=== PATIENT | female | born 1940 ===

== ENCOUNTER 2017-01-04 23:09 | Inpatient (IN) | payer OTHER ==
[~2017-01-04] VITALS: Ht 157.4 cm; Wt 49.9 kg
--- NOTE | ~2017-01-04 | PR ---
[place], [place] PROGRESS NOTE NAME: RISHI MASCORRO UNIT #: [id number] ROOM: 311 DOCTOR: TIERA DODGE MD BIRTHDATE: [birth year] DOS: 01/22/2017 CHIEF COMPLAINT: "I need something for my sleep." SUMMARY OF THE VISIT: The patient was interviewed in the dining area where she was sitting eating her breakfast. She actually engaged in more meaningful conversation and seemed to be much less somatically preoccupied. She requested that I obtain another muffin for her and actually engaged in conversation, stating that she is still having some issues with sleep and requested a sleeping pill, specifically Ambien. When I redirected her and attempted to educate her that Ambien may not be the best alternative, she actually was open to considering alternative medications and requested that she have something to use on a p.r.n. basis. She seemed to be slightly brighter and actually joke with me, so I do think that we are making some progress finally. She did not voice any medication side effects. There was no complaining that her head was burning. There were no other somatic complaints noted. MENTAL STATUS: She is alert and oriented with some gaps. Mood does finally seem to be trending towards euthymia and affect seems much more appropriate. There was no hypomania or claudia. There were no overt auditory or visual hallucinations. She denied any medication side effects this morning. Memory has some mild gaps, otherwise she is intact. PLAN: I will maintain her current dose of Trilafon and Elavil. I see no side effects at the current medication doses. I will add Rozerem 8 mg at bedtime p.r.n. insomnia. We will continue to engage in individual and davis milieu activity with the plan to return home or to the least restrictive environment when psychiatrically stable. TIERA DODGE MD CM:PNTRANS TIERA DODGE MD 01/22/1741 interface
--- NOTE | ~2017-01-04 | PR ---
[place], [place] PROGRESS NOTE NAME: RISHI MASCORRO UNIT #: [id number] ROOM: 314 DOCTOR: Anika TORRES,KUMAR BIRTHDATE: [birth year] DOS: 01/10/2017 SUBJECTIVE: The patient seen and spoke with the staff. Per staff, the patient is doing well, still very somatic. No visual problems or issues, but resistive to take some of the medication. The patient when I went to her room, she was on her bed. She said that she only slept a few hours last night. She was insisting on going back to Pamelor and do not want to take Ambien also. After much discussion, she said that she does not want to take Effexor anymore rather she goes back to Pamelor 25 mg in the morning. I told her that I will start her on a low dose in the morning and gradually the dose can be titrated. The risks, benefits and side effect of Pamelor was discussed with the patient and she verbalized understanding. MENTAL STATUS EXAMINATION: The patient was pleasant, cooperative. Described her mood as "down." Affect was flat, broad range. Thought process goal directed. No flight of ideas or loosening of association. She denied auditory or visual hallucination. No delusion or paranoia noted. She denied any suicidal ideation, intent or plan. She also denied any homicidal ideation, intent or plan. ASSESSMENT: 1. 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 2. Generalized anxiety disorder. PLAN: 1. I will discontinue her Effexor. 2. I will start her on Pamelor 10 mg in the morning. Risks, benefits, and side effect was discussed with the patient. 3. Final medication management, discharge plan by the regular team. KUMAR TORRES MD CM:JODIE [id number] Anika TORRES 01/10/17 1155 interface
--- NOTE | ~2017-01-04 | PR ---
[place], [place] PROGRESS NOTE NAME: RISHI MASCORRO UNIT #: [id number] ROOM: 314 DOCTOR: TIERA DODGE MD BIRTHDATE: [birth year] DOS: 01/17/2017 CHIEF COMPLAINT: "Oh my head still on fire. I thought I would get better here. I have only gotten worse." SUMMARY OF THE VISIT: The patient was interviewed as she sat eating in the quiet room. She stopped to engage in conversation and once again was somatically preoccupied, stating that her head was on fire and it was all because of the medication she received. Of note, she did state that she got relief from the p.r.n. that she received last night. In reality, there is no p.r.n. medicine listed on the chart and nurses' notes indicate that she slept a solid 8 hours last night. Nurses' notes also indicate that they are noticing episodic confusion with her, which could be one of the underlying issues that needs to be addressed. I did reinforce the need to stay the course and continue with the Trilafon and the Elavil and not make any changes. Her history in the hospital to date has been one of multiple med changes and I do want her to get these medications a reasonable chance to work. MENTAL STATUS: She is alert and oriented to person, place and approximate to time. I do question whether there is an underlying cognitive decline, which is triggering some of her somatic preoccupation and almost accusatory behavior. She remains labile and very depressed. There are no overt auditory or visual hallucinations, delusions or paranoia. Short-term memory has mild gaps. PLAN: I will go ahead and start her on Exelon patch 4.6 mg a day. I will discuss this with nursing to attempt to engage her in the reason behind starting this medication and see if she will give it a reasonable chance. We will engage in individual and davis milieu activity with the plan to return home or the least restrictive environment when stable. TIERA DODGE MD CM:PNTRANS TIERA DODGE MD 01/17/17 0953 interface
--- NOTE | ~2017-01-04 | PR ---
[place], [place] PROGRESS NOTE NAME: RISHI MASCORRO UNIT #: [id number] ROOM: 314 DOCTOR: TIERA DODGE MD BIRTHDATE: [birth year] DOS: 01/15/2017 CHIEF COMPLAINT: "That medicine helped me to concentrate, but I am still feeling really depressed." SUMMARY OF THE VISIT: The patient was interviewed as she was about to sit down to eat breakfast. She initially presented with her normal, negative behavior, stating that she was not any better. However, after saying that she quickly regrouped to state that the medicine that she had during the day yesterday, did improve her concentration and helped her feel more calm. This is the first positive statements she has had in some time. She did not focus on any side effects this morning, not reporting any issues with either of the new medications. MENTAL STATUS: She is alert and oriented. Mood still seems to be depressed with a lot of negative overtones and some anxiety noted. There is no claudia or hypomania, likewise there are no overt auditory or visual hallucinations. No delusions, no paranoia. She remains somatically preoccupied. Memory for the most part is intact. PLAN: I will maintain her Elavil at 25 mg at bedtime. At this point, I will monitor to see if she is tolerating this well for several days before attempting to challenge her with a higher dose. Given the fact that she had noted positive improvement with the low dose Trilafon, I will increase the dose from 2 mg twice a day to 2 mg 3 times a day to see if we can obtain further improvement. We will engage her in individual and davis milieu activity with the ultimate plan to return home or the least restrictive environment when psychiatrically stable. TIERA DODGE MD CM:PNTRANS [id number] TIERA DODGE MD 01/15/17 1043 interface
--- NOTE | ~2017-01-04 | PR ---
[place], [place] PROGRESS NOTE NAME: RISHI MASCORRO UNIT #: [id number] ROOM: 311 DOCTOR: TIERA DODGE MD BIRTHDATE: [birth year] DOS: 01/20/2017 CHIEF COMPLAINT: "I have been poisoned. I am certain that they gave me the man next door's medicine." SUMMARY OF THE VISIT: The patient was interviewed as she rested in bed. She did awake and sat at the edge of her bed. She was very fretful and anxious and reported to me that she is convinced that she was given the wrong medicine and that it poisoned her. She continued in this very somatic vein that she has been doing ever since admission. I tried to redirect and support her. She continued to repetitively say the same thing. There is an air of accusatory behavior and I do seriously consider that she is potentially pre Alzheimer's at this point. MENTAL STATUS: She is alert and oriented with time gaps. Mood does seem to be very fretful and anxious. There is a level of paranoia that is present. She does not always process conversation and it is unclear if this is because she is not listening or she is not able to process. Memory does have some gaps. PLAN: I will increase her Trilafon to 2 mg in the morning and 4 mg at night, attempting to breakthrough some of the accusatory behavior. Maintain the Elavil at 50 mg at bedtime, attempt to get her to be compliant with the Exelon patch. I did reiterate the importance of this and she nodded in approval. We will engage in individual and davis milieu activity. We will go ahead at this point in time and proceed with attempting to get a passer, as she may require some long-term care in order to stabilize. TIERA DODGE MD CM:PNTRANS [id number] TIERA DODGE MD 01/20/17 2327 interface
--- NOTE | ~2017-01-04 | DS ---
[place], [place] DISCHARGE SUMMARY NAME: RISHI MASCORRO UNIT #: [id number] ROOM: 311 DOCTOR: TIERA DODGE MD BIRTHDATE: [birth year] DOS: 01/24/2017 CHIEF COMPLAINT: "I have just been so depressed." HISTORY OF PRESENT ILLNESS: This is a 76-year-old female with a long history of depression who had presented to [facility] emergency room with her [id number] because of increased depression with suicidal ideation and a plan to overdose on her pills. The patient has reported that she has been increasingly depressed for now several months and can no longer cope at home. She endorses poor sleep and appetite, energy, anhedonia, hopeless, helpless feelings, crying spells, and inability to cope. She was sent here then on an involuntary basis to be restabilized on medication. PAST MEDICAL HISTORY: Significant for hypertension, hyperlipidemia, glaucoma, macular degeneration and a history of bladder prolapse. SUMMARY OF HOSPITAL COURSE: The patient had a rather lengthy hospital course. Dr. Fozia Mays who was covering for me discontinued her Pamelor and Risperdal and attempted to start her on Effexor XR and trazodone. The patient was extremely somatically preoccupied, in the early part of her stay was characterized by the initiation and discontinuation of multiple medications. Effexor was ultimately discontinued in lieu of Remeron. This was discontinued later in lieu of Pamelor, which was discontinued in lieu of eventually Elavil. The patient continued to state that she had multiple and significant reactions to her medications. It became obvious that part of this was her attempt to stay in the hospital longer and she was supported and redirected on ways in which she can more effectively cope at home. She was tolerating the Elavil well and despite her complaints that she was having side effects the nurses did not notice anything in the adverse event category. She was sleeping per the nurse's report. 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 The patient did seem much more brighter and conversant toward the latter part of her stay and no longer voiced suicidal thoughts or plan. Because of her improvement, it was felt that she can be maintained at home and have followup as an outpatient. MENTAL STATUS AT DISCHARGE: The patient was alert and oriented with mild time gaps. Mood was strongly trending towards euthymia. Affect was much more appropriate. There were no symptoms of hypomania or claudia. There were no overt auditory or visual hallucinations. No delusions, no paranoia were present. Short term memory had mild gaps, otherwise she was intact. FINAL DIAGNOSIS: Major depression, recurrent with psychosis. PLAN: All of her prescriptions were e-prescribed to [facility] in [place]. She will have followup in the [facility] post-discharge. [place], [place] DISCHARGE SUMMARY NAME: RISHI MASCORRO UNIT #: [id number] ROOM: [facility] DOCTOR: TIERA DODGE MD BIRTHDATE: [birth year] TIERA DODGE MD CM:DISCHARG [id number] TIERA DODGE MD 01/24/17 1854 interface
--- NOTE | ~2017-01-04 | PR ---
[place], [place] PROGRESS NOTE NAME: RISHI MASCORRO UNIT #: [id number] ROOM: 311 DOCTOR: TIERA DODGE MD BIRTHDATE: [birth year] DOS: 01/23/2017 Interval Note CHIEF COMPLAINT: "I can't see at all." SUMMARY OF THE VISIT: The patient was interviewed as she rested in bed. She engaged readily in conversation. She again was very somatically preoccupied and stated that she was blind and could not see, although this is not true to form. The patient is able to see. 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 She remains very somatic and very negative. She is demanding that her medications be adjusted downward. Despite support and redirection, she continues to be very help rejecting. MENTAL STATUS: She is alert and oriented. Mood does seem to be still somewhat down and depressed, somatic and preoccupied. She is nihilistic in many ways. She is not suicidal or homicidal, however. PLAN: At this point in time, I will decrease her Elavil from 50 to 25 mg at bedtime, so that at least she continues to be compliant with the medicine. I do not feel at this point that continued length of stay is necessary and would like to be able to discharge her back home and perhaps get her involved in an intensive outpatient program to more normalize her activity. We will engage in individual and davis milieu activity here, discharging when stable. TIERA DODGE MD CM:PNTRANS [phone] TIERA DODGE MD 01/24/17 0431 interface
--- NOTE | ~2017-01-04 | WRIGHTHP ---
[place], [place] PATIENT HISTORY AND PHYSICAL EXAM NAME: [id number] UNIT #: [id number] ROOM: 314 DOCTOR: Anika TORRESKUMAR BIRTHDATE: [birth year] DOS: 01/06/2017 REASON FOR HOSPITALIZATION: Increased depression and suicidal ideation with plan to overdose on pills. HISTORY OF PRESENT ILLNESS: The patient was seen and chart reviewed. A 76-year-old female with history of depression in the past, who was taken to the [facility] by her [id number] because of increased depression and suicidal ideation with a plan to overdose on pills. After medical clearance, she was sent to the psychiatric unit for further care and stabilization. The patient is a 76-year-old female with pleasant and cooperative. She stated that the reason she has been feeling increasingly depressed because "I couldn't cope." She felt that she is going over the ages, could not take it anymore and then started having suicidal thought. The patient mentioned that she has been getting injection for macular degeneration. For the last couple of months, she got 2 injections and she has been feeling increasingly depressed since then. She said that one of the stress that after she started on this injection, she was not able to sleep. She reported being depressed down, sad, hopeless, helpless with lack of energy and motivation. She believes that the injection is the reason that she has been feeling the way she was feeling. She denied any psychosis, claudia or hypomania. She denied any other stressors in her life. She said that she has been taking Pamelor for the last 40 years and that medication has been helping her, but not lately. PAST MEDICAL HISTORY: Significant for hypertension, hyperlipidemia, glaucoma, macular degeneration and bladder prolapse. She has a history of cataract surgery, knee replacement and hysterectomy. PAST PSYCHIATRIC HISTORY: One prior psychiatric hospitalization. Denied prior suicidal attempt. No suicide in the family. She denied having any gun at home. SUBSTANCE ABUSE HISTORY: She denied any drugs or alcohol. SOCIAL HISTORY: She was born and raised in [place]. High school graduate. for the past 61 years. She has 4 kids, on social security now. She lives with her . Denied any history of physical or sexual abuse. MENTAL STATUS EXAMINATION: The patient was pleasant and cooperative. She was alert and oriented to day, date, month and the year. Speech was normal volume and tone. She described her mood as "down." Affect broad range, tearful at times. Thought process goal directed. No flight of ideas, loosening of association. She denied auditory or visual hallucination. No delusion or paranoia noted. She had fleeting suicidal ideation, but no intent or plan. Denied homicidal ideation, intent or plan. Insight and judgment fair. ASSESSMENT: Major depressive disorder, recurrent without psychotic features, [place], [place] PATIENT HISTORY AND PHYSICAL EXAM NAME: RISHI MASCORRO UNIT #: [id number] ROOM: 314 DOCTOR: Anika TORRES,KUMAR BIRTHDATE: [birth year] still depressed with suicidal plan. PLAN: 1. I will discontinue her Pamelor. 2. I will discontinue her Risperdal. 3. I will start her on Effexor XR 37.5 mg in the morning with a plan to titrate that up. 4. I will continue trazodone 50 mg at night. 5. Consult hospitalist for medical issues. 6. Continue redirection and supportive care. 7. Collateral information. 8. Hoyt milieu. KUMAR TORRES MD CM:HISPHYS:PATIENT HISTORY AND PHYSICAL EXAMINATION [phone] Anika TORRES 01/06/172125 interface
--- NOTE | ~2017-01-04 | PR ---
[place], [place] PROGRESS NOTE NAME: RISHI MASCORRO UNIT #: [id number] ROOM: 314 DOCTOR: IGOR LADD BIRTHDATE: [birth year] DOS: 01/18/2017 CHIEF COMPLAINT: "I am not sleeping. I am hungry." SUMMARY OF VISIT: The patient was assessed in her room, where she had all kinds of somatic complaints. I did review Dr. Talley's notes before going in there. It does state that she has multiple somatic complaints, complains of side effects to everything all the time. She has tried multiple copious amounts of medications and always complains about them. Nursing notes no main issues. My main concern is that she told me that Dr. Talley told her to tell me that I was to give her 20 mg of Ativan. I advised her that this was not going to happen. MENTAL STATUS: She is alert and oriented to person, place, and I think approximate time. No overt signs of auditory or visual hallucinations, delusions or paranoia, claudia, or hypomania. I think she might be a little depressed, but she is definitely fixated and very somatic. PLAN: Dr. Talley increased started her on Exelon yesterday to see if this gives any kind of benefit to her or help to her. He was noticing a cognitive decline, so if this is the case, the Exelon should help not only with cognition, but may be also decrease any behaviors, increase and maintain some of her ADLs. I am not going to change any of her other medications at this time. I do believe her complaints are more somatic in nature, and I am definitely not giving her 20 mg of Ativan, so we will continue to try to engage in individual and davis milieu therapy, redirect as much as possible, and go from there. SANDY LADD CNP CM:PNTRANS 42 IGOR LADD 01/18/171940 interface
--- NOTE | ~2017-01-04 | CON ---
[place], [place] REPORT OF CONSULTATION NAME: RISHI MASCORRO UNIT #: [id number] ROOM: 311 DOCTOR: DEBI HERRERA BIRTHDATE: [birth year] DOS: 01/20/2017 HISTORY OF PRESENT ILLNESS: The patient was seen on the Behavioral Health Unit after being admitted there from the hospital with suicidal ideations. The patient currently denies any suicidal ideations and stated she has been feeling better since being admitted to the Behavioral Health Unit. She states she has not had any suicidal ideation since being on the unit. The patient states she is having depressive symptoms. She did focus a lot on somatic symptoms, stating everyday something else feels worse and then that feels better the next day. She states one day she will have a headache, then the next day that will feel better and she will have stomachache and so on and so forth. She states she has had some manic symptoms her whole life and she does believe it is associated with her anxiety. MENTAL STATUS: She is alert and oriented to person, place and time. She was aware of where she was, who the president was, her birthdate and she was able to give an extended history on her family, which did align with the family members who were present. She states she has a daughter in [place], who is a nurse, who is helping to try to find the right medications for her. She states her son, Je, and his come in to visit her daily. She also has a son in [place], who is helpful and her older son is estranged. She resides with her who is helpful and able to assist her as needed. PAST MEDICAL HISTORY: Major depression, hyperlipidemia, hypertension, glaucoma. Again, the patient denies any suicidal ideation at this time. She does appear competent and understands the gravity of her decisions. She is alert and oriented to all three spheres. She does appear to have insight into what her decision making process is. She is forthcoming with all information and gave an extended history as I spent 45 minutes with her and she was able to tell me about her marriage, her children, her work history as well. DIAGNOSES: Major depression disorder without psychotic features and anxiety. RECOMMENDATIONS: At this time, the patient is agreeable to go to a senior care for some period of time until her medications are stabilized and take full effect. She states that her [id number] and son, Je, are able to help her with this decision and her is able to assist with this decision as well. She is agreeable to fill out of power of deputy prosecuting attorney forms to assist with any decision making if someone feels she is confused in the future. At this time, I recommend she does go for a stay at rehab facility if this can be arranged. This was discussed with the school social worker on the floor and her family should be kept updated accordingly as they are involved and supportive. Thank you for the consult. [place], [place] REPORT OF CONSULTATION NAME: RISHI MASCORRO UNIT #: [id number] ROOM: [facility] DOCTOR: DEBI HERRERA BIRTHDATE: [birth year] GRANT Davidson CM:CONSTR:REPORT OF CONSULTATION 1008 01/20/17 2320 interface
--- NOTE | ~2017-01-04 | PR ---
[place], [place] PROGRESS NOTE NAME: RISHI MASCORRO UNIT #: [id number] ROOM: 311 DOCTOR: TIERA DODGE MD BIRTHDATE: [birth year] DOS: 01/21/2017 INTERVAL NOTE. CHIEF COMPLAINT: "That psychotic medicine is causing me not to be able to urinate." SUMMARY OF THE VISIT: The patient was interviewed in her room. She continues to be very somatically preoccupied and very fretful and anxious. She is now convinced that the antipsychotic medication is causing her to have urinary retention and states that she has not been able to urinate for the last 24 hours. She continues to jump from one somatic complaint to the other and continues to be focused on all the medication side effects that are possible. This has been evident even from her admission to the hospital as she has been on a plethora of antidepressants since her early admission here. At this point in time, I did confront her that perhaps the treatment of choice at this point would be ECT which she received when she was much younger at [facility] in [place]. MENTAL STATUS: She remains alert and oriented with time gaps. Mood does seem to be depressed with anxious overtones. Her somatization borders on psychosis. Memory for the most part is intact. PLAN: At this point, I will make no medication changes. Nursing will assess for urinary retention and also talked to her about the possibility of a referral to a tertiary care center for the possibility of ECT given the fact that she seems to be either truly so sensitive to medication or so somatically fixated she is not giving the medications ECT may be the treatment of choice. We will continue to proceed in this direction at this time, engage in individual and davis milieu activity, discharging to the least restrictive environment when psychiatrically stable. TIERA DODGE MD CM:PNTRANS 9 TIERA DODGE MD 01/21/17 1023 interface
--- NOTE | ~2017-01-04 | PR ---
[place], [place] PROGRESS NOTE NAME: RISHI MASCORRO UNIT #: [id number] ROOM: 314 DOCTOR: Anika TORRES,KUMAR BIRTHDATE: [birth year] DOS: 01/07/2017 SUBJECTIVE: Patient seen and spoke with the staff. Per staff, patient slept well all night. No problems or issues. Patient was in her room. She was in the bed. She said that she was not able to sleep at all at night and that is why she is not feeling good today. She asked if she can get something for sleep at night. She reported being depressed and down. Still had fleeting suicidal ideation, but no intent or plan. Denied any homicidal ideation, intent or plan. ASSESSMENT: Major depressive disorder, recurrent, severe without psychotic feature. PLAN: 1. Continue current medication. 2. I will start her on Seroquel 25 mg at night. 3. Continue redirection. 4. Unit milieu. KUMAR TORRES MD CM:PNMALENA [phone] Anika TORRES 01/07/172351 interface
--- NOTE | ~2017-01-04 | PR ---
[place], [place] PROGRESS NOTE NAME: RISHI MASCORRO UNIT #: [id number] ROOM: 314 DOCTOR: TIERA DODGE MD BIRTHDATE: [birth year] DOS: 01/16/2017 CHIEF COMPLAINT: "My head is on fire, I don't know what to do." SUMMARY OF THE VISIT: The patient presented to the dining area complaining that her head was on fire and that she felt out of control and wanted her medication change once again. I confronted her on her tendency to knee jerk response and complained repeatedly of medication side effects, demanding that they be stopped before she ever has a chance to have the side effects gradually subside and the benefits to improve over time. I educated her on the need to give medicines more of a chance and told her flatly at this point, I would not change her medicine and that it was medically contraindicated. She nodded in approval. She did request that I lower her Trilafon, stating that the middle dose that was added was a little too strong for her and I agreed with doing that, but we will maintain the Trilafon 2 mg b.i.d. and the Elavil at its current dose. MENTAL STATUS: She is alert and oriented. She remains depressed, anxious and somatic. She does require a great deal of support and redirection. There are no overt auditory or visual hallucinations. There are no suicidal or homicidal thoughts. Memory is intact. PLAN: As mentioned above, I will lower her Trilafon back down to 2 mg b.i.d., maintain Elavil at its current dose, continue to support and redirect, discharging home when stable. TIERA DODGE MD CM:PNTRANS [phone] TIERA DODGE MD 01/17/17 0439 interface
--- NOTE | ~2017-01-04 | PR ---
[place], [place] PROGRESS NOTE NAME: [id number] UNIT #: [id number] ROOM: 314 DOCTOR: Anika TORRES,KUMAR BIRTHDATE: [birth year] DOS: 01/09/2017 PSYCHIATRIC PROGRESS NOTE SUBJECTIVE: Patient seen and spoke with the staff. Per staff, patient is still very shaky and anxious and very somatic. According to nursing staff, she slept well last night. Took her medication, but did not have any side effect. Patient was in the day area. She reports poor sleep. She complains about anxiety and shakiness. She asked for a vitamin. When I told her that I will increase the Ambien; she reluctantly agreed. MENTAL STATUS EXAMINATION: Patient was pleasant, cooperative. Described her mood as "bad." Affect was broad range, shaky. Thought process goal directed. No flight of ideas or loosening of association. She denied auditory or visual hallucination. No delusions or paranoia noted. She did not answer my question when I asked her about suicide. Denied any homicidal ideation, intent or plan. ASSESSMENT: 1. Major depressive disorder, recurrent, without psychotic feature, still very depressed and anxious. 2. Generalized anxiety disorder. PLAN: 1. I will increase her Effexor to 75 mg. 2. I will increase her Ambien to 10 mg at night. 3. I will discontinue the trazodone. KUMAR TORRES MD CM:PNMALENA [id number] Anika TORRES 01/10/17 0436 interface
--- NOTE | ~2017-01-04 | PR ---
[place], [place] PROGRESS NOTE NAME: [facility]ASCORRO [id number] UNIT #: [id number] ROOM: 314 DOCTOR: Anika TORRES,KUMAR BIRTHDATE: [birth year] DOS: 01/08/2017 PSYCHIATRIC PROGRESS NOTE SUBJECTIVE: Patient seen and spoke with the staff. Per staff, patient is very somatic, shaky, did not want to take Seroquel, very attention seeking. Patient was pleasant and cooperative, but reported being depressed and down. She said that she is not going to take the Seroquel anymore because that made her throat dry. She wanted to get some medication for sleep as she claims that she was not able to sleep well last night. She denied any side effect from the Effexor, but states that Effexor is not helping her. I told her that she just took the first dose and should not expect that the medication will help her immediately. She reported fleeting suicidal ideation, but no intent or plan. She says she will ask for help if that thought becomes stronger. MENTAL STATUS EXAMINATION: Patient was pleasant and cooperative. Described her mood as "down." Affect was broad range, shaky. Thought process goal directed. No flight of ideas or loosening of association. She denied auditory or visual hallucination. No delusion or paranoia noted. She had fleeting suicidal ideation, but no intent or plan. Denied homicidal ideation, intent or plan. ASSESSMENT: Major depressive disorder, recurrent without psychotic feature. PLAN: 1. Continue current medication, Effexor. 2. We will discontinue Seroquel. 3. We will start her on Ambien 5 mg at night for insomnia. 4. Continue redirection. 5. Hoyt milieu. KUMAR TORRES MD CM:PNMALENA Anika TORRES 01/08/17 2028 interface
--- NOTE | ~2017-01-04 | PR ---
[place], [place] PROGRESS NOTE NAME: RISHI MASCORRO UNIT #: [id number] ROOM: 314 DOCTOR: TIERA DODGE MD BIRTHDATE: [birth year] DOS: 01/13/2017 CHIEF COMPLAINT: "I don't feel well at all, I think I am having side effects from the medicine." SUMMARY OF THE VISIT: The patient was interviewed as she rested quietly in bed. She struggled to get up and sat at the edge of the bed, reporting that she did not feel well at all and feels that she is having a great deal of side effects from the medicine. She is feeling both depressed and anxious and is not sleeping well. She did recount when she was younger having been on desipramine for a very long time and it worked for her until she reached menopause and then subsequently did not work. She would like a medicine similar to that and once off all of the multiple medicines that she currently is on. MENTAL STATUS: She is alert and oriented with some mild time gaps. Mood does seem to be very depressed with anxious overtones. There is no claudia or hypomania. There are no psychotic symptoms noted. Memory for the most part is intact. PLAN: I will discontinue both her Remeron and Effexor in lieu of Tofranil 50 mg at bedtime. I will also lower her Ambien from 10 to 5 mg at bedtime p.r.n. given the recent recommendations that Women should not receive doses over 5 because of increased risk of morbidity and mortality. We will engage in individual and davis milieu activity with the plan to return home when stable. TIERA DODGE MD CM:PNTRANS [phone] TIERA DODGE MD 01/13/17 1033 interface
--- NOTE | ~2017-01-04 | PR ---
[place], [place] PROGRESS NOTE NAME: RISHI MASCORRO UNIT #: [id number] ROOM: 314 DOCTOR: IGOR LADD BIRTHDATE: [birth year] DOS: 01/19/2017 CHIEF COMPLAINT: "Good morning." SUMMARY OF VISIT: The patient was assessed in her room where she was sleeping soundly, as I further assessed her, she did mention that she was not sleeping, but I followed up with nursing staff and they stated that when they checked in on her, she was indeed sleeping, had her eyes closed, ____ breathing. MENTAL STATUS: She is alert and oriented to person, place, approximate time. There are no overt signs of auditory or visual hallucinations, delusions, paranoia, claudia or hypomania. I do not know if she is depressed or just fixated on some of her somatic symptoms. PLAN: Again, her Exelon was increased on Friday due to Dr. Talley evaluated for some cognitive decline. She was much better this morning when she just first woke up. I am going to continue with current medications as is. She tolerates this, Exelon without any side effects. I may go ahead and increase it tomorrow morning. SANDY LADD CNP CM:PNTRANS [phone] IGOR LADD 01/20/17 0136 interface
[2017-01-04] MEDS ORDERED: RISPERDAL0.25 MG PO (23:34)
[2017-01-04] MEDS ORDERED: NORPRAMIN PO (23:36)
[2017-01-04] MEDS ORDERED: VITAMIN D31000 UNI1 PO (23:38)
[2017-01-04] MEDS ORDERED: OMEGA 3-6-9 11200 MG PO (23:41)
[2017-01-04] MEDS ORDERED: NAPHCON-A EYE D15 ML OP (23:47)
[2017-01-04] MEDS ORDERED: MULTIPLE VITAM1 EACH PO (23:47)
[2017-01-04] MEDS ORDERED: SIMVASTATIN20 MG PO (23:48)
--- NOTE | 2017-01-05 12:07 | NUR ---
MEDICATIONS VERIFIFED WITH PAT AT [facility] IN [place], [place]. MED REC UPDATED.
[2017-01-05] MEDS ORDERED: METOPROLOL SUCC50 M1 PO (12:09)
[2017-01-05] MEDS ORDERED: KLONOPIN0.5 MG PO (12:15)
[2017-01-05] MEDS ORDERED: XANAX0.5 MG PO (12:16)
[2017-01-05] MEDS ORDERED: TRAZODONE50 MG PO (12:16)
[2017-01-05 14:02] VITALS: BP 149/67
[2017-01-05 14:37] VITALS: BP 149/67
--- NOTE | 2017-01-05 14:54 | NUR ---
URINALYSIS OBTAINED AT THIS TIME VIA CLEAN CATCH, LABELED AND SENT TO LAB VIA PHARMACY.
[2017-01-05 15:02] LABS: BILIRUBIN NEGATIVE (NEGATIVE); BLOOD NEGATIVE (NEGATIVE); CLARITY SL CLOUDY (CLEAR); COLOR YELLOW (YELLOW); GLUCOSE NEGATIVE (NEGATIVE); KETONE NEGATIVE (NEGATIVE); LEUKO ESTERASE 1+ (NEGATIVE); NITRITE NEGATIVE (NEGATIVE); SPECIFIC GRAVITY 1.015 (1.005-1.030); UROBILINOGEN 0.2 E.U./dl (0.2-1.0)
[2017-01-05 15:06] LABS: BACTERIA 2+
--- NOTE | 2017-01-05 15:06 | NUR ---
CONTACTED AT [phone] REGARDING MEDICAL MANAGEMENT CONSULT, PER DR. PINON CONSULT UNDER .
[2017-01-05 15:07] LABS: RBC 0-2 rbc/hpf (0-2)
--- NOTE | 2017-01-05 15:12 | NUR ---
RISHI MASCORRO a 76 year old F admitted via stretcher from the [facility] as a emergency 72 hr. hold admission. Arrived on unit at 1345. ALLERGIES: NKA . Vital signs are: 98.5-87-18 149/67. The client signed the following forms with stated understanding: Authorization For The Release of Medical Information, Clothing List, Consent and Release Forms/Receipt of Rights, Acknowledgement of Advance Directive Information, Behavioral Health Consent Form, and Informed Consent of Medications. PT DID NOT SIGN THE VOLUNATRY CONSENT, PT IS PINK SLIPPED. Admitted under the services of Dr. MELISSA M.D.,[facility]. A search was conducted and hazardous articles were removed. Client was oriented to the unit. MARIBEL MARS
--- NOTE | 2017-01-05 15:17 | NUR ---
PT ARRIVED ON THE UNIT AT 1345 WITH 2 AMBULANCE ATTENDANTS. PT ALERT TO PERSON, PLACE, TIME AND SITUATION. PT DENIES ANY HOMICIDAL/SUICIDAL THOUGHTS STATING "I'M AFRAID OF AND DIEING, I WOULDN'T DO THAT TO MY SELF." PT MOOD IS DEPRESSED, PT STATES "I JUST CAN'T COPE ANYMORE, I DON'T WANT TO LIVE LIKE THIS. PT RESTLESS AT TIMES, PACING THE HALLS. PT TEARFUL WHEN TALKING ABOUT CARING FOR HER , AND SPEAKING OF HER SITUATION." NO HALLUCIANTIONS OR DELUSIONS NOTED. PT AMBULATORY THROUGHOUT UNIT, GAIT STEADY. PT CONTINENT OF BOWEL AND BLADDER. PLAN IS TO ENCOURAGE PT TO PARTICIPATE IN GROUPS/ACTIVITIES, MONITOR PT BEHAVIORS ON Q15 MIN SAFETY CHECKS, ENCOURAGE PT TO VOICE ANY HOMICIDAL/SUICIDAL THOUGHTS.
--- NOTE | 2017-01-05 15:29 | NUR ---
NOTIFIED OF PT UA RESULTS. NO FURTHER ORDERS AT THIS TIME.
--- NOTE | 2017-01-05 17:09 | NUR ---
PT RECIEVED FLU VACCINE TO RIGHT DELTOID. PT TOLERATED WELL.
[2017-01-05 19:45] VITALS: BP 141/62
--- NOTE | 2017-01-05 21:00 | NUR ---
REFUSED TO GET UP FOR SNACK. DISCUSSED IMPORTANCE OF INTERACTING WITH OTHERS. STATES SHE NEEDS TO SLEEP TO CATCH UP ON ALL THE SLEEP SHE HAS MISSED AT HOME. EXPLAINED THAT BEING ISOLATED INCREASES DEPRESSION AND SHE SHOULD GET UP AND NOT GO TO BED TILL AT LEAST NINE PM.
--- NOTE | 2017-01-05 22:10 | NUR ---
TOOK EYE DROPS IN AND SHE REFUSED. STATES THEY WILL WAKE HER UP LATER TONIGHT.
--- NOTE | 2017-01-05 23:00 | NUR ---
CLIENT AWAKE AND PO FLUIDS PROVIDED. STATES SHE WAS SLEEPING GREAT THEN I WOKE HER UP FOR MEDICATION AND NOW SHE CAN'T SLEEP. REINFORCED THAT SHE HAD BEEN SLEEPING SINCE AT LEAST 1900PM WHEN I ARRIVED ON THE UNIT. AGAIN DISCUSSED IMPORTANCE OF STAYING UP TILL AT LEAST 2100PM SO SHE CAN SLEEP ALL NIGHT. SHE JUST SHOOK HER HEAD AND GAVE NO REPLY. WILL MONITOR
--- NOTE | 2017-01-06 02:03 | NUR ---
24 HR chart check completed.
[2017-01-06 04:10] LABS: BASO # 0.1 10*3/uL (0.0-0.1); BASO % 0.4 % (0.0-1.0); EOS # 0.3 10*3/uL (0.0-0.4); EOS % 2.1 % (1.0-4.0); LYMPH # 4.3 10*3/uL (1.3-4.4); LYMPH % 35.7 % (27.0-41.0); MEAN CELL VOLUME 95.4 fl (81.0-99.0); MEAN CORPUSCULAR HGB 31.8 pg (27.0-31.0); MEAN CORPUSCULAR HGB CONC 33.3 g/dl (33.0-37.0); MEAN PLATELET VOLUME 9.5 fl (9.6-12.3); MONO # 1.3 10*3/uL (0.1-1.0); MONO % 10.5 % (3.0-9.0); NEUT # 6.2 10*3/uL (2.3-7.9); NEUT % 51.1 % (47.0-73.0); PLATELET COUNT AUTOMATED 277 10*3/uL (130-400); RED BLOOD COUNT 4.09 10*6/uL (4.10-5.10); RED CELL DISTRI WIDTH 13.1 % (0-14.5); WHITE BLOOD COUNT 12.1 10*3/uL (4.8-10.8)
[2017-01-06 04:28] LABS: ALBUMIN 3.2 gm/dl (3.1-4.5); ALKALINE PHOSPHATASE 88 U/L (45-117); BUN 17 mg/dl (7-24); CHLORIDE 102 mmol/L (98-107); CHOLESTEROL 208 mg/dL (<200); CREATININE 0.71 mg/dL (0.55-1.02); HDL CHOLESTEROL 72 mg/dl (40-60); LDL CHOLESTEROL 100 mg/dL (9-159); POTASSIUM 4.3 mmol/L (3.5-5.1); SGOT/AST 20 IU/L (3-35); SGPT/ALT 26 U/L (12-78); SODIUM 140 mmol/L (136-145); TOTAL PROTEIN 6.8 gm/dL (6.4-8.2); TRIGLYCERIDES 180 mg/dl (<150); VLDL CHOLESTEROL 36 mg/dL (6-40)
--- NOTE | 2017-01-06 06:42 | NUR ---
SLEPT WELL PAST [id number]
[2017-01-06 07:02] LABS: VITAMIN D, 25-HYDROXY 41.2 ng/mL (30-100)
[2017-01-06 08:54] VITALS: BP 132/68
--- NOTE | 2017-01-06 10:00 | NUR ---
SAM HENNESSY CNP AT BEDSIDE TO ASSESS PATIENT. MADE AWARE OF WBC COUNT AND UA RESULTS AND PATIENT C/O VAGINAL PAIN. STATES WILL ENTER NEW ORDERS.
--- NOTE | 2017-01-06 10:11 | NUR ---
Treatmet Team was held withthe following: Dr. Mays (phone), RNs, AT, SWs. Dr. Mays said that Pt can sign in voluntraily.
--- NOTE | 2017-01-06 10:32 | NUR ---
PHYSICAL THERAPY Physical Therapy Evaluation completed this date. See eval document for further details. Based on the independence demonstrated with all functional mobility skills tested, no ongoing PT is indicated at this time[place] [address] based on chart review and PT eval. Dona Sotomayor, PT
--- NOTE | 2017-01-06 12:50 | NUR ---
Exercising/Reminiscing/Positive Traits Patient was in attendence for group this morning as well as participated. Patient reported no suicidal ideations and maintained safe behaviors throughout group
--- NOTE | 2017-01-06 15:38 | NUR ---
Craft and postive trait group Patient actively attended and participated in group after encouragement. Patient able to state postive traits about everyone in group however increased difficulty with postive self traits. With encouragement from group patient was able to state one trait at the end of group. Patient reports feeling good about staying for the group and happy they attended. That the "positive wreath" will be a good reminder of things about themself. Patient did not report any SI during session.
--- NOTE | 2017-01-06 15:41 | NUR ---
assessment completed. Left for pt. son Ronnell to return call per pt. permission.
--- NOTE | 2017-01-06 18:45 | NUR ---
PATIENT IS ALERT AND VERBAL, ABLE TO MAKE NEEDS AND WANTS KNOWN TO STAFF. VERBALIZED SHE WANTS "TO GET BETTER." MOOD REMAINS MILDLY DEPRESSED WITH FLAT/BLUNTED AFFECT. DENIES ANY SUICIDAL/HOMICIDAL IDEATIONS, PLANS, OR THOUGHTS. VERBALLY CONTRACTED FOR SAFETY, PT VERBALIZES UNDERSTANDING TO COME TO STAFF WHEN OVERWHELMED, UPSET, OR INCREASING ANXIETY. FUTURE FOCUSED THINKING OBSERVED DURING INTERACTIONS WITH STAFF THIS SHIFT. TEARFUL EPISODE X1 THIS AM WHEN EXPLAINING WHY SHE WAS ADMITTED. EMOTIONAL SUPPORT PROVIDED WITH GOOD EFFECT. FAMILY IN THIS EVENING FOR PLEASANT VISIT. COPIES MADE OF [facility] PAPERWORK MADE AND PUT INTO CHART. HAS BEEN ATTENDING AND PARTICIPATING IN GROUP THERAPIES THIS SHIFT. CALM AND COOPERATIVE WITH STAFF. APPETITE FAIR THIS SHIFT, TAKING FLUIDS WELL. MEDICATION COMPLIANT WITHOUT DIFFICULTY. LOW ANXIETY LEVELS NOTED THIS SHIFT. TOOK MONUROL THIS SHIFT FOR UTI.
[2017-01-06 20:02] VITALS: BP 143/66
[2017-01-06 20:03] VITALS: BP 143/66
--- NOTE | 2017-01-06 23:20 | NUR ---
PATIENT TREATMENT PLAN SUICIDE IDEATIONS RELATED TO DEPRESSION AND INCREASED ANXIETY. DENIES SUICIDE IDEATIONS, HALLUCINATIONS, AND DELUSIONS AT THIS TIME. PATIENT INTERACTIVE AND PARTICIPATING BUT GUARDED. PATIENT ANXIOUS WHEN RECEIVING MEDICATIONS DUE TO ROOM MATE. PATIENT VERBALIZED THAT ROOM MATE IS ANNOYING HER. THIS NURSE TALKED TO PATIENT AND ABLE TO HELP CALM PATIENT DOWN BEFORE ANXIETY INCREASED. PATIENT VERBALIZED UNDERSTANDING AND ABLE TO REDIRECT ATTENTION FROM ROOM MATE. MEDICATION COMPLIANT
--- NOTE | 2017-01-07 04:53 | NUR ---
PER LORA AT [facility] ADV, IP COSTA. LAST COVERED DAY 01/07 WITH NEXT REVIEW DUE 01/07.
--- NOTE | 2017-01-07 05:08 | NUR ---
24 HR chart check completed.
--- NOTE | 2017-01-07 06:47 | NUR ---
DR. MCCLELLAND UPDATED WITH URINALYSIS MICRO RESULTS WITH 50,000 CFU STAPH AUREUS. AWARE OF ONE TIME DOSE OF MONUROL GIVEN ON 01/06/17. NO FURTHER TREATMENT AT THIS TIME
--- NOTE | 2017-01-07 06:51 | NUR ---
Q 15 MINUTE SAFETY CHECKS MAINTAINED. SLEPT > 8 HOURS THROUGHOUT SHIFT. VOICES NO COMPLAINTS OF PAIN OR DISCOMFORT
--- NOTE | 2017-01-07 08:05 | NUR ---
VM FROM YASMIN Chatman CM INFORMING THAT PT IS COVERED THROUGH 01/07 WITH REVIEW TODAY. REQUESTED COPY OF JOSE RIGHTS TO SEND WITH REVIEW.
[2017-01-07 08:11] VITALS: BP 153/70
[2017-01-07 09:11] LABS: BASO % 0.6 % (0.0-1.0); EOS # 0.1 10*3/uL (0.0-0.4); EOS % 1.4 % (1.0-4.0); HEMATOCRIT 36.1 % (37.0-47.0); HEMOGLOBIN 11.9 g/dl (12.0-16.0); LYMPH # 1.9 10*3/uL (1.3-4.4); LYMPH % 26.7 % (27.0-41.0); MEAN CELL VOLUME 94.5 fl (81.0-99.0); MEAN CORPUSCULAR HGB 31.2 pg (27.0-31.0); MONO # 0.6 10*3/uL (0.1-1.0); MONO % 8.9 % (3.0-9.0); NEUT # 4.5 10*3/uL (2.3-7.9); NEUT % 62.1 % (47.0-73.0); PLATELET COUNT AUTOMATED 275 10*3/uL (130-400); RED BLOOD COUNT 3.82 10*6/uL (4.10-5.10); WHITE BLOOD COUNT 7.2 10*3/uL (4.8-10.8)
--- NOTE | 2017-01-07 09:22 | NUR ---
TREATMENT TEAM WAS HELD WITH THE FOLLOWING: DR. TORRES (PHONE), RNs, AT, SW. DR. TORRES PT CAN SIGN IN.
[2017-01-07 09:26] LABS: ALBUMIN 3.1 gm/dl (3.1-4.5); ALKALINE PHOSPHATASE 86 U/L (45-117); BUN 13 mg/dl (7-24); CHLORIDE 102 mmol/L (98-107); CREATININE 0.73 mg/dL (0.55-1.02); POTASSIUM 4.4 mmol/L (3.5-5.1); SGOT/AST 18 IU/L (3-35); SGPT/ALT 26 U/L (12-78); SODIUM 138 mmol/L (136-145); TOTAL PROTEIN 6.7 gm/dL (6.4-8.2)
--- NOTE | 2017-01-07 10:43 | NUR ---
PATIENT COMPLAINED OF HAVING VAGINAL DRYNESS AND BURNING ON URINATION. SAM HENNESSY CORNETIST ON UNIT TO SEE PATIENT AND UPDATED.
--- NOTE | 2017-01-07 10:45 | NUR ---
PATIENT IS ALERT AND ORIENTED TO PERSON, PLACE AND TIME; ABLE TO VOICE NEEDS. RESPIRATONS ARE EASY, NON- LABORED ON ROOM AIR. PATIENT DENIES ANY HALLUCINATIONS, DELUSIONS, HI/SI OR PAIN. PATIENT HAS COMPLAINTS OF BURNING ON URINATIONS AND VAGINAL DRYNESS, SAM HENNESSY, MANAGER COMMERCIAL AWARE. PATIENT IS DEPRESSED MOOD, GOAL DIRECTED AND ORGANIZED. PATIENT IS CALM, COOPERATIVE; INTERACTIVE WITH STAFF, PARTICIPATES IN GROUP ACTIVITIES. INDEPENDANT WITH ACTIVITY OF DAILY LIVING, CONTINENT OF BOWEL AND BLADDER. MEAL INTAKES ARE GOOD WITH ADEQUATE FLUIDS. MEDICATION COMPLIANT WITH EDUCATION PROVIDED. Q 15 MINUTE SAFETY CHECKS MAINTIANED. NO SUICIDAL IDEATIONS VOICED AND CONTINUE TO MAINTAIN SAFE ENVIROMENT.
--- NOTE | 2017-01-07 10:59 | NUR ---
PATIENT COMPLAINED OF BEING DIZZY. CHECKED MANUAL BP 150/88. ASKED PATIENT IF SHE GO UP FAST AND ENCOURAGE TO CHANGE POSITIONS SLOWLY AND TO ASK FOR ASSISTANCE WHEN AMBULATING FOR FALL PREVENTION.
--- NOTE | 2017-01-07 11:27 | NUR ---
[facility] Patient attended group with lots of encouragement. Patient tearful and feeling depressed this morning. Patient agreeable to come to group and particapted with appropriate comments. Patient reports being to old to feel better. Encouraged patient to think of how well they felt yesterday and that it is possible with work and learning coping skills. Patient displays better affect at the end of group. Patient did not voice and SI thoughts during group.
--- NOTE | 2017-01-07 12:57 | NUR ---
PER ALEXIS AT [facility]ENDING [facility] TO [facility] ADDITIONAL 2 DAYS. NEXT REVIEW 01/09/17.
--- NOTE | 2017-01-07 13:22 | NUR ---
GREGORY SPOKE WITH YASMIN Chatman CM. APAPPROVED UNTIL 01/09 WITH REVIEW THAT DAY.
--- NOTE | 2017-01-07 13:31 | NUR ---
REVIEWED VOLUNTARY ADMISSION FORM, PATIENT AGREED AND SIGN CONSENT FOR ADMISSION AT THIS TIME.
[2017-01-07 20:00] VITALS: BP 144/81
--- NOTE | 2017-01-08 04:38 | NUR ---
24 HR chart check completed.
--- NOTE | 2017-01-08 05:49 | NUR ---
PATIENT TREATMENT PLAN WITH SUICIDAL IDEATIONS RELATED TO DEPRESSION AND ANXIETY. PATIENT WITH INCREASED ANXIETY AND VERBALIZING THAT THE STAFF IS GOING TO KILL HER. PATIENT STATING THAT IT IS SO COLD THAT SHE IS GOING TO CATCH PNEUMONIA AND IN HERE. PATIENT STATING THAT THE DOCTOR STARTED HER ON A NEW SLEEPING PILL AND IT IS GOING TO KILL HER AND IS MAKING HER NAUSEATED AND IS UNABLE TO DRINK. PATIENT CONTINUES ON BACTIM DS WITH NO ADVERSE REACTION. PATIENT CONTINUES TO VERBALIZE BURING IN VAGINAL AREA WITH CREAM APPLIED. MEDICATION COMPLIANT
--- NOTE | 2017-01-08 06:56 | NUR ---
Q 15 MINUTE SAFETY CHECKS MAINTAINED. SLEPT > 8 HOURS THIS SHIFT. VOICES NO COMPLAINTS OF PAIN OR DISCOMFORT AT THIS TIME
--- NOTE | 2017-01-08 07:40 | NUR ---
Self Esteem Story/Coping Skills Jeopardy Patient did not attend afternoon group. Patient refused waiting to lay down. Patient was encouraged to come to group but patient absolutley refused to join group
[2017-01-08 07:59] VITALS: BP 128/67
--- NOTE | 2017-01-08 11:10 | NUR ---
Reminiscing Patient did not attend group this morning. Patient was encouraged by this AT and patient stated "not until the nurse gives me my pill. I just cant go." patient also stated she was waiting to take a shower.
--- NOTE | 2017-01-08 15:45 | NUR ---
Identifying My Strengths Patient was in attendence for most of the group. Patient needed to leave after approxamatley 45 minutes through group. Patient did participate. Patient maintained safe behavior and voiced no suicidal ideations
--- NOTE | 2017-01-08 18:19 | NUR ---
SLIGHT IMPROVEMENT NOTED IN PATIENT BEHAVIOR. HAS BEEN ATTENDING AND PARTICIPATING IN GROUP THERAPY WITH MUCH ENCOURAGEMENT FROM STAFF. HAS BEEN LESS ISOLATIVE TO ROOM AND INTERACTING MORE WITH PEERS. MOOD REMAINS MILDLY DEPRESSED WITH BLUNTED AFFECT. MEDICATION COMPLIANT WITHOUT DIFFICULTY. MEDICATION EDUCATION COMPLETED THROUGHOUT THE SHIFT WITH MIN TO MOD EFFECT. MILD ANXIETY NOTED AT TIME DURING THE SHIFT, 1:1 AND EMOTIONAL SUPPORT PROVIDED WITH GOOD EFFECT. NO VOICED PARANOIA THIS SHIFT. DENIES ANY SUICIDAL IDEATIONS OR PLAN. VERBALLY CONTRACTED FOR SAFETY. WAS MORE OPEN WITH STAFF REGARDING LIFE STRESSORS. WILL CONTINUE WITH Q15 MIN OBSERVATION CHECKS, PROVIDE EMOTIONAL SUPPORT AND REASSUREANCE NEEDED. ENCOURAGE PT TO ATTEND AND PARTICIAPTE IN GROUP THERAPY. APPETITE IMPOVED THIS SHIFT, TAKING FLUIDS WELL. TOOK A SHOWER THIS SHIFT. SEE [facility] FOR SPECIFIC MONITORING.
[2017-01-08 20:10] VITALS: BP 180/90
--- NOTE | 2017-01-08 20:18 | NUR ---
CALLED RESIDENT NUMBER SPOKE TO DR. MCCLELLAND, UPDATED HIM PATIENTS RECENT MANUAL BP OF 180/9O AND IS ASYMPTOMATIC. RECIEVED NO ORDERS AT THIS TIME.
--- NOTE | 2017-01-08 22:00 | NUR ---
SPOKE TO , UPDATED ON PATIENT "FEELING ANXIOUS" AND REQUESTING SOMETHING FOR "ANXIETY" AND THAT PATIENT ALSO STATED "MY FAMILY MADE ME FEEL WORSE TODAY" BUT WOULD NOT ELABORATE TO WHY. ALSO THAT PATIENT REFUSED PRN AMBIEN AT THIS TIME. DR. TORRES GAVE ORDER FOR 0.5 KLONOPIN NOW. NO OTHER ORDERS RECIEVED.
--- NOTE | 2017-01-08 23:03 | NUR ---
PATIENT RECIEVED PRN AMBIEN 5MG REQUESTED FOR "HAVING A HARD TIME SLEEPING, FEELING ANXIOUS". NO OTHER COMPLAINTS VOICED AT THIS TIME. NO SIGNS OR SYMPTOMS OF DISTRESS NOTED.
--- NOTE | 2017-01-09 05:04 | NUR ---
PATIENT IS ALERT AND ORIENTED X3. MOOD MODERATELY ANXIOUS AT BEGINNING OF SHIFT WITH NOTED PARANOIA, PATIENT STATED "I JUST KNOW IM GOING TO HERE, JUST KNEW IT". PATIENT PROVIDED WITH 1:1 EMOTIONAL SUPPORT WITH GOOD EFFECT. PATIENT DENIES ANY SUICIDAL IDEATIONS, PATIENT INFORMED THAT IF THOUGHTS ARISE TO HARM SELF TO NOTIFY STAFF. PATIENT CONTRACTED FOR SAFETY. DENIES HALLUCINATIONS, NO NOTED RESPONDING TO INTERNAL STIMULI. MEDICATION COMPLIANT WITH HS MEDICATIONS WITHOUT DIFFICULTY. REFUSED 1X DOSE OF KLONOPIN 0.5MG THIS SHIFT ORDERED FOR ANXIETY STATING "I USE TO TAKE THAT AT HOME AND IT MADE ME SAD AND CRY AND CRY". SLEPT APPROX 6 HOURS UNINTERRUPTED WHILE OBSERVED ON Q 15 MIN SAFETY CHECKS. PRN AMBIEN GIVEN AT 2301 EFFECTIVE AT THIS TIME. PATIENT CURRENTLY IN BED WITH EYES CLOSED. RESPIRATIONS EASY AND REGULAR. NO SIGNS OR SYMPTOMS OF DISTRESS NOTED. PATIENT TREATMENT PLAN TARGET SUICIDAL IDEATION RELATED TO DEPRESSED MOOD AND INCREASED ANXIETY EVIDENCED BY PATIENT STATING SHE WILL "JUST GO HOME AND TAKE ALL MY PILLS". STAFF WILL ASSESS PATIENT FOR SUICIDAL IDEATIONS DURING DAILY INTERACTIONS, ASSIST PATIENT IN IDENTIFYING TRIGGERS TO SUICIDAL/SELF DESTRUCTIVE THOUGHTS DAILY, ASSIST PATIENT IN IDENTIFYING 3 COPING SKILLS TO RELIEVE SYMPTOMS DAILY AND PRACTICE AND ENCOURAGE MEDICATION COMPLIANCE. PLAN TO CONTINUE CURRENT TX PLAN. REFER TO [facility] FLOWSHEET FOR SPECIFIC MONITORING.
--- NOTE | 2017-01-09 06:10 | NUR ---
24 HOUR CHART CHECK COMPLETED.
[2017-01-09 08:20] VITALS: BP 153/64
--- NOTE | 2017-01-09 08:30 | NUR ---
VM FROM [facility] REPORTING THAT PT HAD CM THORUGH IUNSURANCE: MILLER GARCIA - [phone] EXT [phone].
--- NOTE | 2017-01-09 09:23 | NUR ---
TREATMENT TEAM WS HELD WITH THE FOLLOWING: DR. TORRES (PHONE), RNs, AT, SW. DR. TORRES STATED THAT PT WAS STILL HAVING SI AND PARANOID. MEDICATION CHANGED.
--- NOTE | 2017-01-09 10:49 | NUR ---
PT IS ALERT AND ORIENTED TO PERSON, PLACE, TIME, SITUATION. MEMORY APPEARS INTACT. RESPIRATIONS EASY ON ROOM AIR. MOOD IS DEPRESSED AND ANXIOUS, AFFECT IS SAD. SPEECH IS WNL AND COHERENT, ABLE TO MAKE NEEDS KNOWN WITHOUT DIFFICULTY. PT DENIES HALLUCINATIONS, NO RESPONSE TO INTERNAL STIMULI NOTED. PT DENIES SI/HI. VERBALLY CONTRACTED FOR SAFETY. PT IS AMBULATORY WITH STEADY GAIT, INDEPENDENT WITH ADLS, CONTINENT OF BOWEL AND BLADDER, PT REQUESTED AND WAS GIVEN PRN MOM FOR C/O CONSTIPATION, WILL MONITOR FOR EFFECTIVENESS. PT REMAINS ISOLATIVE, CAME OUT TO MORNING GROUP FOR A FEW MINUTES, WAS BROUGHT TO THIS NURSE BY ACTIVITY STAFF PT STATES "I FEEL LIKE I'M GOING TO PASS OUT." UPON PHYSICAL ASSESSMENT, VITAL SIGNS STABLE, [id number]/81-97% ROOM AIR. RESPS EASY ON ROOM AIR. NO S/S DISTRESS NOTED. PT PREOCCUPIED WITH MEDS, STATES "I NEED A MULTIVITAMIN AND I ASKED FOR A LAXATIVE." PT ASSISTED TO ROOM TO LIE DOWN. MOM WAS GIVEN MENTIONED ABOVE. PT BACK IN DAY ROOM FOR GROUP APPROX 15 MIN LATER. NO DISTRESS NOTED. PT'S TREATMENT PLAN TARGETS: SUICIDAL IDEATION R/T DEPRESSED MOOD AND INCREASED ANXIETY AEB PT STATES "I WILL JUST GO HOME AND TAKE ALL MY PILLS." STAFF WILL CONTINUE TO ASSESS PT FOR SUICIDAL IDEATIONS, ASSIST PT IN IDENTIFYING TRIGGERS TO SI, ASSIST PT IN DEVELOPING COPING SKILLS, AND ENCOURAGE MEDICATION COMPLIANCE. PLAN TO CONTINUE CURRENT TX PLAN. Q15 MIN SAFETY CHECKS MAINTAINED, REFER TO [facility] FLOWSHEET FOR SPECIFIC MONITORING.
--- NOTE | 2017-01-09 13:03 | NUR ---
SPOKE TO PT'S NISHA HOFFMAN, UPDATE GIVEN. STATES SHE WILL CALL THIS EVENING TO TALK WITH PT.
--- NOTE | 2017-01-09 13:21 | NUR ---
Diomedes/Jing Patient did attend group this morning as well as participated. Patient did get up to leave at one point stating she felt dizzy. AT escourted her out to quiet room to sit down and informed her nurse. While patient was in group she verbialized no suicidal ideations and maintained safe behavior
--- NOTE | 2017-01-09 13:54 | NUR ---
DR. KERN AND DR. DAVIDSON HERE TO SEE PT THIS AFTERNOON. MADE AWARE PT REQUESTS MULTIVITAMIN.
--- NOTE | 2017-01-09 15:37 | NUR ---
Fears Patient was in attendence for group this afternoon,patient also participated. Patient is always upset and/or crying saying shes a mess and shes worse than the day before. Attempt to redirect patient with little success. Patient maintained safe behaviors and voiced no suicidal ideations will in group
--- NOTE | 2017-01-09 17:39 | NUR ---
SHIFT CHART CHECK COMPLETED.
--- NOTE | 2017-01-09 18:38 | NUR ---
DR. TORRES HERE TO SEE PT AT THIS TIME.
[2017-01-09 20:12] VITALS: BP 156/88
--- NOTE | 2017-01-09 21:21 | NUR ---
PATIENT RECIEVED PRN AMBIEN 10MG REQUESTED FOR "HAVING A HARD TIME SLEEPING AND FEELING ANXIOUS". NO OTHER COMPLAINTS VOICED AT THIS TIME. NO SIGNS OR SYMTOMS OF DISTRESS NOTED.
--- NOTE | 2017-01-10 04:39 | NUR ---
PER ALEXIS [facility] STAY [facility] THROUGH 01/12/17 WITH NEXT REVIEW DUE 01/13/17.
--- NOTE | 2017-01-10 05:24 | NUR ---
24 HOUR CHART CHECK COMPLETED.
--- NOTE | 2017-01-10 05:32 | NUR ---
PATIENT IS ALERT AND ORIENTED X3. MOOD IS MODERATELY ANXIOUS AT BEGINNING OF SHIFT WITH NOTED PARANOIA. PATIENT STATED "ITS ALL MY FAULT, MY IS MOVING IN WITH MY SON,I JUST CANT BELIEVE I LET THINGS GET THIS FAR THAT I HAVE TO BE IN A HOSPITAL". PATIENT PROVIDED WITH 1:1 EMOTIONAL SUPPORT WITH MINIMAL EFFECT. PATIENT DENIES ANY SUICIDAL IDEATIONS, PATIENT INFORMED THAT IF THOUGHTS ARISE TO HARM SELF TO NOTIFY STAFF. PATIENT CONTRACTED FOR SAFETY. DENIES HALLUCINATIONS, NO NOTED RESPONDING TO INTERNAL STIMULI. MEDICATION COMLPIANT WITH HS MEDICATIONS WITHOUT DIFFICULTY.NO PHYSICAL COMPLAINTS VOICED. SLEPT APPROX 7 HOURS UNINTERRUPTED WHILE OBSERVED ON Q 15 MIN SAFETY CHECKS WITH X1 AWAKENING TO REQUEST "PADMA GUSTAVO". PRN AMBIEN GIVEN AT 2121 EFFECTIVE AT THIS TIME. PATIENT CURRENTLY IN BED WITH EYES CLOSED. RESPIRATIONS EASY AND REGULAR. NO SIGNS OR SYMPTOMS OF DISTRESS NOTED. PATIENT TX PLAN TARGETS SUICIDAL IDEATION RELATED TO DEPRESSED MOOD AND INCREASED ANXIETY EVIDENCED BY PATIENT STATING SHE WILL "JUST GO HOME AND TAKE ALL MY PILLS". STAFF WILL ASSESS PATIENT FOR SUICIDAL IDEATIONS DURING DAILY INTERACTIONS, ASSIST PATIENT IN IDENTIFYING TRIGGERS TO SUICIDAL/SELF DESTRUCTIVE THOUGHTS DAILY, ASSIST PATIENT IN INDENTIFYING 3 COPING SKILLS TO RELIEVE SYMPTOMS DAILY AND PRACTICE. ALSO ENCOURAGE MEDICATION COMPLIANCE. PLAN TO CONTINUE CURRENT TX PLAN. REFER TO [facility] FLOWSHEET FOR SPECIFIC MONITORING.
[2017-01-10 07:42] VITALS: BP 153/78
--- NOTE | 2017-01-10 08:30 | NUR ---
VM FROM YASMIN Chatman CM REPORTING THAT PT WAS COVERED THORUGH THE 01-12 WITH REVIEW I THE .
--- NOTE | 2017-01-10 09:40 | NUR ---
TREATMENT TEAM WAS [facility] WITH THE FOLLOWING: DR. TORRES (PHONE), RNs, AT, SW, DIRECTOR. MEDICATION CHANGED DUE TO BLOOD PRESSURE.
--- NOTE | 2017-01-10 11:25 | NUR ---
Remembering Our Tastes Patient was encourage to come to group this morning but at first refused. Patient stated "I cant right now. I want to but I just took my blood pressure medicine and it makes me dizzy. I have to lay down a while." Patient was then encouraged to come to group when she felt better. Patient arrived for second half of group and participated. While in group patient maintained safe behaviors and voiced no suicidal ideations.
[2017-01-10 12:10] VITALS: BP 180/84
--- NOTE | 2017-01-10 12:10 | NUR ---
PATIENT WALKED UP TO NURSES STATION AND TOLD CONTACT CENTER ENGINEER THAT SHE COULD NOT SEE, THAN AMBULATED TO HER ROOM, TOOK HER GLASSES OFF. EYES ARE REACTIVE TO LIGHT. STATES SHE COULD NO FOCUS, NO COMPLAINTS OF PAIN VOICE. VITALS : 98.5, 18, 97% RA PULSE 88 AND MANUAL BP 180/84. COMPLAINED OF HAVING SINUS ISSUES. DR. ALMONTE NOTIFIED AND INSTRUCTED TO REASSESS IN ONE HOUR.
[2017-01-10 13:10] VITALS: BP 142/52
--- NOTE | 2017-01-10 13:10 | NUR ---
PATIENT RESTING IN BED WITH EYES CLOSED. VITALS: 98.1,18,142/52,93,97% RA. STATED SHE WAS FEELING BETTER. NO VOICE COMPLAINT OF PAIN OR VISION PROBLEMS. CALL LIGHT WITH IN REACH.
--- NOTE | 2017-01-10 13:47 | NUR ---
DR. ALMONTE ON UNIT AND UPDATED ON PATIENT'S CONDTION.
--- NOTE | 2017-01-10 15:28 | NUR ---
Games Patient was in bed and this staff member encouraged to to come to group but patient refused saying she was waiting on the DR. Patient eventually came to group but only stayed less than 5 minutes. When patient got up to leave she stated "I just cant,It makes me dizzy."Patient returned to her room and laid down
--- NOTE | 2017-01-10 16:00 | NUR ---
Shift chart check completed.
[2017-01-10 19:55] VITALS: BP 146/78
--- NOTE | 2017-01-11 00:40 | NUR ---
24HR CHART CHECKS COMPLETE
--- NOTE | 2017-01-11 03:21 | NUR ---
PT ALERT AND ORIENTED X4. FLAT AFFECT NOTED. PT MADE NO SOMATIC COMPLAINTS AT THE TIME OF THIS DOCUMENTATION. PT ISOLATED TO ROOM FOR MAJORITY OF SHIFT. REFUSED TO OPEN UP INTO DISCUSSION WITH STAFF. PT DENIED SI/HI, HALLUCINATIONS, OR DELUSIONAL THOUGHT PROCESSES. ENCOURAGED VERBALIZATION OF FEELINGS/EMOTIONS IN HOPES TO FOSTER THERAPEUTIC RAPPORT. PT NOT RECEPTIVE AT THIS TIME. CONTINUE TO MONITOR FOR CHANGES IN BEHAVIOR. REFER TO FLOWSHEET FOR ADDITIONAL INFO.
[2017-01-11 08:24] VITALS: BP 154/73
--- NOTE | 2017-01-11 14:01 | NUR ---
PATIENT IS ALERT AND OREINT TO PERSON AND PLACE. DENIES ANY HALLUCINATIONS, DELUSION, HI/SI OR PAIN. MOOD IS DEPRESSED AND IRRATIABLE AT TIMES. PATIENT IS PREOCCUPIED WITH MEDICATION AND HAVING SIDE EFFECT, CAUSING MORE ANXIETY WITH SOMATIC COMPLAINTS. 1:1 WITH PATIENT REGARDING MEDICATIONS, THE IMPORTANCE ON TAKING MEDICATIONS ORDERED AND GIVING TIME FOR THE MEDICAITONS TO WORK. 1:1 EFFECTIVE BUT PATIENT STILL COMPLAINING OF HAVING SIDE EFFECT WITH DIARRHEA WITH STARTING NEW MEDICATION 3 HRS AGO. REINFORCE THE IMPORTANCE OF TAKING MEDICATIONS ORDERED. PATIENT IS INDEPENDANT WITH ACTIVITIES OF DAILY LIVING, SET UP FOR MEALS AND SHOWER. AMBULATORY WITH STEADY GAIT. CONTINENT OF BOWEL AND BLADDER. PATIENT ENCOURAGE TO PARTICIPATE IN GROUP ACTIVITIES AND TO BE SOCIAL WITH OTHER PATIENTS. Q 15 MINUTE SAFETY CHECKS.
--- NOTE | 2017-01-11 15:00 | NUR ---
DR. ROSALES ON UNIT TO SEE PATIENT.
--- NOTE | 2017-01-11 16:15 | NUR ---
Shift chart check completed.
--- NOTE | 2017-01-11 19:28 | NUR ---
24HR CHART CHECKS COMPLETE
--- NOTE | 2017-01-11 20:29 | NUR ---
PT REPORTS NON SPECIFIC STOMACH PAIN WITHOUT ROOT CAUSE. PRN MAG-AL PLUS ADMINISTERED. CONTINUE TO MONITOR FOR MEDICATION EFFECTIVENESS.
[2017-01-11 20:39] VITALS: BP 154/63
--- NOTE | 2017-01-11 21:59 | NUR ---
PT ALERT AND ORIENTED X4. PT PRESENTS WITH A FLATTENED AFFECT. PER PT, ANXIETY AND DEPPRESSION HAVE "RUINED" HER LIFE. PT REFUSED LISTEN TO COPING MECHANISM EDUCATION. PT FIXATED ON MEDICATION REGIMEN, ASSOCIATING "SIDE EFFECTS" TO MEDICATIONS SHE HAS YET TO TAKE. SOMATIC COMPLIANTS NOTED. PT UNABLE TO RECOGNIZE THESE SYMPTOMS ARE NOT BASED IN REALITY. ATTEMPT TO OPEN DIALOUGE WITH PT IN HOPES TO FOSTER THERAPTEUTIC RAPPORT. CONTINUE TO MONITOR FOR CHANGES IN BEHAVIOR. REFER TO FLOWSHEET FOR ADDITIONAL INFO.
--- NOTE | 2017-01-12 03:22 | NUR ---
PT REPORTS TO THE NURSE'S STATION REPORTING "NOT SLEEPING A WINK." PT WITNESSED SLEEPING SOUNDLY FOR THE PAST 5 HRS. PT COMPLAINING OF DIARRHEA AND STOMACH PAIN. PT PREVIOUSLY INSTRUCTED TO LEAVE BM IN THE TOILET SO STAFF MAY VISUALIZE IT TO REPORT IT TO THE PHYSICIAN. PT STATES "WELL, I FORGOT." EDUCATED PT TO INCREASE HYDRATION. PROVIDED ADDITIONAL GLASS OF WATER. PT, AGAIN, INSTRUCTED TO LEAVE BM IN THE TOILET UNTIL STAFF MAY VISUALIZE IT. PT ATTRIBUTES THESE SYMPTOMS TO ALL OF HER MEDICATION CHANGES. INCREASE IN SOMATIC COMPLAINTS NOTED WHEN PT SOCIALZES WITH OTHER FEMALE PEERS. PTS NOTED TO "SHARE" SYMPTOMS WITH ONE ANOTHER AFTER DISCUSSION. CONTINUE TO OFFER EMOTIONAL VENTILATION AND PROVIDE THERAPEUTIC COPING MECHANISMS TO AID IN IN COMBATING FEELINGS OF ANXIETY.
--- NOTE | 2017-01-12 04:03 | NUR ---
ATTEMPTED TO REEVALUATE PATIENT FOR INSOMNIA, PT CURRENTLY SNORING, SLEEPING SOUNDLY.
--- NOTE | 2017-01-12 06:23 | NUR ---
PT SLEPT >7HRS WITH ONE INTERRUPTION.
[2017-01-12 07:53] VITALS: BP 158/78
--- NOTE | 2017-01-12 10:56 | NUR ---
PATIENT IS ALERT AND ORIENTED TO PERSON, PLACE; ABLE TO VOICE NEEDS. RESPIRATIONS ARE EASY, NON-LABORED ON ROOM AIR. MOOD IS ANXIOUS AND DEPRESSED; THOUGHT PROCESS IS OBSESSIVE/PREOCCUPIED THE MEDICATION REGIMEN AND CONCERNS OF HAVING POSSIBLE SIDE EFFFECTS. DENIES ANY HALLUCINATIONS, DELUSIONS, HI/SI OR PAIN. INDEPENDANT WITH ACTIVITIES OF DAILY LIVING, AMBULATORY WITH STEADY GAIT. CONTINENT OF BOWEL AND BLADDER. MEAL INTAKES ARE POOR WITH ADEQUATE FLUIDS. 1:1 WITH PATIENT ON MEDICATION COMPLAINCE AND CONCERNS WITH POOR INTAKES; ENCOURAGE PATIENT TO EAT MORE AT MEAL TIME. PATIENT RESTING QUIETY IN BED IN ROOM AT THIS TIME. DR. BRUMFIELD ON UNIT TO SEE PATIENT AT THIS TIME. CONTINUE TO MONITOR FOR BEHAVIORS AND REDIRECT NEED. Q 15 MINUTE SAFETY CHECKS MAINTAINED.
--- NOTE | 2017-01-12 15:46 | NUR ---
Shift chart check completed.
[2017-01-12 19:43] VITALS: BP 120/58
--- NOTE | 2017-01-12 22:16 | NUR ---
REFUSED SNACK. SURGIGEL GIVEN FOR DRIED LIPS. MOVING SELF IN BED. REVIEWED CURRENT MEDICATIONS SHE IS TAKING. REFUSED 1:1 AT THIS TIME. WILL MONITOR
--- NOTE | 2017-01-13 05:41 | NUR ---
24 HR chart check completed.
[2017-01-13 07:56] VITALS: BP 136/68
--- NOTE | 2017-01-13 10:04 | NUR ---
PT IS ALERT AND ORIENTED TO PERSON, PLACE, TIME AND SITUATION. MEMORY APPEARS INTACT. RESPIRATIONS EASY ON ROOM AIR. MOOD IS DEPRESSED WITH BLUNTED AFFECT. SPEECH IS WNL AND COHERENT, ABLE TO MAKE NEEDS KNOWN WITHOUT DIFFICULTY. PT DENIES SI/HI, PLAN OR INTENT. PT DENIES HALLUCINATIONS, NO RESPONSE TO INTERNAL STIMULI NOTED. NO PARANOIA/DELUSIONS NOTED. PT IS AMBULATORY WITH STEADY GAIT, INDEPENDENT WITH ADLS, CONTINENT OF BOWEL AND BLADDER. DISPLAYS GOOD APPETITE WITH ADEQUATE FLUID INTAKE. PT IS ISOLATIVE AT TIMES TO ROOM, DOES COME OUT FOR MEALS AND GROUPS INDEPENDENTLY. MEDICATION COMPLIANT WITHOUT DIFFICULTY. PT STATES "THAT MEDICATION I TOOK FOR SLEEP LAST NIGHT CAUSES ME TO RUN TO THE BATHROOM ALL NIGHT WITH DIARRHEA. I DON'T WANT TO TAKE THAT AGAIN." UPON READING EMAR PT TOOK REMERON LAST EVENING, DR. DODGE MADE AWARE OF THE ABOVE STATEMENT BY THE PT. PT'S TREATMENT PLAN TARGETS: (1) SUICIDIAL IDEATIONS R/T DEPRESSION AND ANXIETY AEB PT STATES "I WILL JUST GO HOME AND TAKE ALL MY MEDS." STAFF WILL ASSESS PT FOR SI DURING DAILY INTERACTIONS, ASSIST PT IN IDENTIFYING TRIGGERS TO SI, ASSIST PT IN DEVELOPING COPING SKILLS AND ENCOURAGE MEDICATION COMPLIANCE. PLAN TO CONTINUE CURRENT TX PLAN. NO DISTRESS NOTED. Q15 MIN SAFETY CHECKS MAINTAINED, REFER TO [facility] FLOWSHEET FOR SPECIFIC MONITORING.
--- NOTE | 2017-01-13 12:08 | NUR ---
SPOKE TO PT'S DAUGHTER YASMIN, UPDATE GIVEN, TRANSFERED CALL TO DINKEY ENGINEER PER DAUGHTER'S REQUEST.
--- NOTE | 2017-01-13 12:59 | NUR ---
Exercise/Letter To Me Patient was in attendence this morning as well as participated. Patient maintained safe behaviors and voiced no suicidal ideations during group.
--- NOTE | 2017-01-13 15:39 | NUR ---
Social HART Patient did attend group as well as participated. Patient maintained safe behaviors and voiced no suicidal ideations throughout group
--- NOTE | 2017-01-13 15:53 | NUR ---
TREATMETN TEAM WAS HELD WITH THE FOLLOWING: DR. DODGE, RNs, SW, ATs. STILL SOMATIC. NO DISCHARGE DATE.
--- NOTE | 2017-01-13 18:21 | NUR ---
SHIFT CHART CHECK COMPLETED.
[2017-01-13 20:24] VITALS: BP 116/58
--- NOTE | 2017-01-13 21:29 | NUR ---
24 HR chart check completed.
--- NOTE | 2017-01-14 05:46 | NUR ---
PT HAS BEEN OBSERVED ON Q 15 MIN CHECKS & HAS SLEPT QUIETLY THROUGHOUT THE SHIFT PAST 2200.
[2017-01-14 08:30] VITALS: BP 127/71
--- NOTE | 2017-01-14 09:04 | NUR ---
TREATMENT TEAM WAS HELD WAS HELD WITH THE FOLLOWING: DR. Dodge, RESIDENT, MEDICAL STUDENT, RNs, AT, SW. DR. DODGE STATED THAT PT IS FIXATED ON MEDS AND IS WORKING WITH PT TO FIND ONE THAT WILL WORK FOR PT. NO DISCHARGE DATE.
--- NOTE | 2017-01-14 11:57 | NUR ---
PER HENRY GARCIA, 5 MORE DAYS APPROVED. LAST COVERED DAY 01-16-17 WITH NEXT REVIEW 01-16-17.
--- NOTE | 2017-01-14 13:05 | NUR ---
Exercise/Riddles & Games Patient did not attend group this morning. Patient was in bed and when she was encouraged to come to group she refused stating" I feel worse than when I came in here. I feel worse than ever."
--- NOTE | 2017-01-14 15:10 | NUR ---
Reminiscing and Puzzles Patient did attend group as well as participated. Patient joined with another patient who is "legally Blind" and assissted her with putting a puzzle together. Patient maintained safe behaviors and voiced no suicidal ideations while in group
--- NOTE | 2017-01-14 17:19 | NUR ---
QASIM FULTON 01/16 WITH REVIEW.
--- NOTE | 2017-01-14 18:17 | NUR ---
Mood is depressed with anxiety low to moderate @ times. On 1:1 interaction Nadeen is verbal discussing her current feelings related to medication changes. She voices frustration with her current treatment. Support was provided. Dr. Talley was in to see her today with orders received. She has required some encouragement to come out of her room and participate in activities. Energy level is low. Appetite is fair. Daughter telephone and spoke with staff today and is requesting a telephone call from psychiatrist or psychiatric social worker. States that she previously requested this, as well, and states that she has not heard from any one. Will send message to psychiatric social worker regarding this. Refer to [facility] flowsheet for specific monitoring.
[2017-01-14 20:00] VITALS: BP 118/50
--- NOTE | 2017-01-15 02:38 | NUR ---
24 HOUR CHART CHECK COMPLETED.
--- NOTE | 2017-01-15 05:00 | NUR ---
PATIENT OBSERVED ON Q 15 MIN SAFETY CHECKS TO HAVE SLEPT APPROX 7 HOURS WITH ONE BRIEF AWAKENING TO CALL THE NURSES STATION TO REQUEST FOR A "GLASS OF WATER".WATER PROVIDED BY STAFF, RETURNED TO SLEEP WITHOUT DIFFICULTY. PATIENT CALM AND COOPERATIVE WITH ANXIOUS MOOD AT TIMES THIS SHIFT. DENIES SI/HI, PLAN OR INTENT. DENIES HALLUCINATIONS, NO NOTED RESPONDING TO INTERNAL STIMULI OR PARANOIA/DELUSIONS NOTED THIS SHIFT. MEDICATION COMPLIANT AFTER REVIEW OF MEDICINES WITHOUT DIFFICULTY. NO PHYSICAL COMPLAINTS VOICED. PATIENT CURRENTLY IN BED WITH EYES CLOSED. RESPIRATIONS EASY AND REGULAR. NO SIGNS OR SYMPTOMS OF DISTRESS NOTED. REFER TO [facility] FLOWSHEET FOR SPECIFIC MONITORING.
[2017-01-15 07:44] VITALS: BP 146/60
--- NOTE | 2017-01-15 09:21 | NUR ---
TREATMENT TEAM WAS HELD WITH THE FOLLOWING: DR. DODGE, RNs, SW, AT. DR. DODGE WANTS RN TO CALL FAMILY ABOUT MEDS. PT STATED THAT SHE CAN CONCENTRATE BETTER. DR. DODGE WILL INCEREASE MEDS.
--- NOTE | 2017-01-15 11:04 | NUR ---
Exercise and remenissing group Patient attended half of group with limited participation. Patient appears to be withdrawn and only discussed fall traditions when directly asked. Patient reports no SI throughout group.
--- NOTE | 2017-01-15 11:44 | NUR ---
ON UNIT TO ASSESS PT.
--- NOTE | 2017-01-15 12:03 | NUR ---
SPOKE WTIH DAUGHTER, YASMIN. YASMIN REQUESTING UPDATE ON PT MEDS. MEDS DISCUSSED WITH DAUGHTER. YASMIN QUESTIONING DISCHARGE, ADVISED THAT DEPENDING ON HOW PT DOES DURING THE NEXT FEW DAYS, WE ARE LOOKING AT A POSSIBLE D/C ON FRI. NO FURTHER CONCERNS AT TIMES.
--- NOTE | 2017-01-15 14:54 | NUR ---
Meaningful Me Patient attended group with good participation. Patient active in group discussion with appropriate conversation. Patient with difficulty this date coming up with personal strengths or positive things about self. Provided patient with past groups and strengths that have been discussed. Patient receptive to education however continues to display flat affect. Patient reports no SI throughout group.
--- NOTE | 2017-01-15 15:39 | NUR ---
Occupational Therapy evaluation completed on 3 this date with full eval to follow. Precautions include 3N, fall risk d/t impulsivity when changing positions. Patient educated on slower moving sit to stand. Recommend home with 24 hr supervision or ICF with 24 hr supervision. At this time no further OT indicated. Thank you for this referral. Bouchra Dumont OTR/l
--- NOTE | 2017-01-15 18:03 | NUR ---
PT ALERT TO PERSON,PLACE, TIME AND SITUATION. PT MED COMPLAINT WITHOUT DIFFICULTY, MED EDUCATION PROVIDED. PT MOOD IS STABLE, APPEARS ANXIOUS AT TIMES. PT GOAL DIRECETD TOWARDS DISCHARGE. PT CALM, INTERACTING WITH STAFF AND PEERS AT TIMES, IOSLATIVE TO ROOM AT OTHER TIMES. PT DENIES ANY HOMICIDAL/SUICIDAL THOUGHTS.PT CONTRACTED FOR SAFETY WITH STAFF, IF SUCH THOUGHTS ARISE. NO HALLUCINATIONS OR DELUSIONS NOTED AT THIS TIME. PT AMBULATORY THROUGHOUT UNIT, GAIT STEADY. PT CONTINENT OF BOWEL AND BLADDER. PT TREATMENT PLAN TARGETS SUICIDAL IDEATIONS R/T ANXIETY AND DEPRESSION. PLAN IS TO ENCOURAGE PT TO VOICE ANY SUICIDAL THOUGHTS, CONTRACT FOR SAFTEY IF THOUGHTS ARISE, MONITOR PT BEAHVIORS ON Q15 MIN SAFETY CHECKS, ENCOURAGE PT TO UTILIZE POSITIVE COPING SKILLS.
[2017-01-15 20:00] VITALS: BP 123/58
--- NOTE | 2017-01-16 02:27 | NUR ---
24 HOUR CHART CHECK COMPLETED.
--- NOTE | 2017-01-16 05:27 | NUR ---
PATIENT OBSERVED ON Q 15 MIN CHECKS TO HAVE SLEPT APPROX 2 HOURS INTERRUPTED WITH MULTIPLE AWAKENINGS DUE TO ANOTHER PATIENT ON THE UNIT YELLING OUT THROUGHOUT THE NIGHT. PATIENT CALM AND COOPERATIVE DURING THIS SHIFT WITH ANXIOUS MOOD AT TIMES. DENIES SI/HI AND HALLUCINATIONS. NO NOTED RESPONDING TO INTERNAL STIMULI. NO PARANOIA OR DELUSIONS NOTED. MEDICATION COMPLIANT AFTER REVIEW OF MEDICINES WITHOUT DIFFICULTY. NO PHYSICAL COMPLAINTS VOICED. PATIENT CURRENTLY IN BED WITH EYES CLOSED. RESPIRATIONS EASY AND REGULAR. NO SIGNS OR SYMPTOMS OF DISTRESS NOTED. REFER TO [facility] FLOWSHEET FOR SPECIFIC MONITORING.
[2017-01-16 07:55] VITALS: BP 154/60
--- NOTE | 2017-01-16 08:23 | NUR ---
TREATMENT TEAM WAS HELD [facility] THE FOLLOWING: DR. DAR CNP, MEDICAL STUDENT, RNs, SWs, AT. DR. DODGE ADJUSTING MEDS. PENDING DISCHARGE FOR EARLY NEXT WEEK.
--- NOTE | 2017-01-16 09:50 | NUR ---
SAM HENNESSY CNP OF HOSPITALIST GROUP HERE TO SEE PT AT THIS TIME, UPDATE GIVEN.
--- NOTE | 2017-01-16 11:33 | NUR ---
Conversation and Goals Patient did attend group this morning with very limited participation. PT is unhappy and skeptical of every feeling better. PT did not voice any suicidal ideations while in group. PT maintained safe behaviors
--- NOTE | 2017-01-16 12:14 | NUR ---
CALL RETURNED TO PT'S DAUGHTER, UPDATE GIVEN.
--- NOTE | 2017-01-16 12:27 | NUR ---
PT IS ALERT AND ORIENTED TO PERSON, PLACE, TIME AND SITUATION. MEMORY APPEARS INTACT. RESPIRATIONS EASY ON ROOM AIR. MOOD REMAINS DEPRESSED WITH FLAT AFFECT. SPEECH IS WNL AND COHERENT, ABLE TO MAKE NEEDS KNOWN WITHOUT DIFFICULTY. PT DENIES HALLUCINATIONS, NO RESPONSE TO INTERNAL STIMULI NOTED. PT DENIES SI/HI. NO PARANOIA/DELUSIONS NOTED. PT CONTINUES TO VOICE MULTIPLE COMPLAINTS REGARDING HER MEDICATIONS, THESE COMPLAINTS HAVE ALL BEEN RELAYED TO DR. DODGE. PT TALKED TO DR. DODGE IN REGARD TO THESE CONCERNS HERSELF THIS MORNING. DR. DODGE EDUCATED PT REGARDING THE NEED TO ALLOW THE MEDICATIONS A FEW MORE DAYS TO ALLOW THE SIDE EFFECTS TO SUBSIDE. PT IN AGREEMENT, THIS EDUCATION REINFORCED BY THIS RN. PT VERBALIZES UNDERSTANDING AND VERBALIZED MOTIVATION TO "GET WELL ENOUGH TO GO HOME." THE ABOVE WAS ALSO DISCUSSED WITH PT'S DAUGTHER WITH STATED UNDERSTANDING. PT IS AMBULATORY WITH STEADY GAIT, INDEPENDENT WITH ADLS, CONTINENT OF BOWEL AND BLADDER, GOOD APPETITE WITH ADEQUATE FLUID INTAKE. NO DISTRESS NOTED. Q15 MIN SAFETY CHECKS MAINTAINED, REFER TO [facility] FLOWSHEET FOR SPECIFIC MONITORING.
--- NOTE | 2017-01-16 17:03 | NUR ---
PT'S ROOMMATE STATED TO THIS NURSE "I'M AGITATED BECAUSE MY ROOMMATE IS AGITATED AND SHE SAID SHE'S GOING TO KILL HERSELF. I'M WORRIED FOR HER." THIS NURSE AND FLARE BREAKER AURA HELD INDIVIDUAL SESSION WITH RISHI. RISHI ENDORSES CONTINUED DEPRESSED MOOD BUT ADAMANTLY DENIES ANY SUICIDIAL THOUGHTS, INTENT OR PLAN. PT STATES "I JUST DON'T KNOW HOW I'M GOING TO GO HOME AND FUNCTION AND I JUST DON'T KNOW HOW TO COPE." SW EXPLORED OTHER POSSIBLE DISCHARGE PLANS WITH PT. PT CONTINUES TO VOICE VARIOUS COMPLAINTS IN REGARD TO MEDICATION SIDE EFFECTIES, EDUCATION RE: MEDICATIONS FROM THIS MORNING REINFORCED WITH PT. PT CONTINUES TO DENY SI AND REPEATEDLY VOICES CONCERN ABOUT GOING HOME. PT VERBALLY CONTRACTED FOR SAFETY. Q15 MIN MONITORING CONTINUES.
--- NOTE | 2017-01-16 18:14 | NUR ---
SHIFT CHART CHECK COMPLETED.
[2017-01-16 19:47] VITALS: BP 129/62
--- NOTE | 2017-01-17 04:37 | NUR ---
PER HENYR RUSSO, IP COSTA 4 MORE DAYS. LAST COVERED DAY 01-20-17 WITH REVIEW DUE 01-20-17.
--- NOTE | 2017-01-17 05:26 | NUR ---
24 HR chart check completed.
--- NOTE | 2017-01-17 05:57 | NUR ---
MEDICATION COMPLIANT. PT SLEPT APPROXIMATELY 8 HOURS THIS SHIFT. NO S/S OF DISTRESS NOTED. NO C/O PAIN. RESPIRATIONS EASY AND NON LABORED. DENIES SI/HI. NO HALLUCINATIONS OR DELUSIONS NOTED. PT A&O X3 WITH A SLIGHT CONFUSION NOTED. DEPRESSED AND INTERACTIVE WITH ROOM MATE. Q15 MINUTE SAFETY CHECKS MAINTAINED. SEE [facility] FLOWSHEET FOR SPECIFIC MONITORING.
[2017-01-17 07:51] VITALS: BP 146/64
--- NOTE | 2017-01-17 09:40 | NUR ---
VM FROM PEPITO HOFFMAN INFORMING THAT LC FOR PT IS 01/20 WITH REVIEW THAT DAY.
--- NOTE | 2017-01-17 09:55 | NUR ---
TREATMENT TEAM WAS HELD WITH THE FOLLOWING: DR. DODGE, MEDIAL STUDENT, RNs, AT, SW. [facility]OD[facility]ADJUSTING [facility]. PENDING DISCHARGE FOR NEXT WEEK.
--- NOTE | 2017-01-17 11:35 | NUR ---
Exercising/Reminiscing/Funny Things Patient did attend group and her participation was limited. Patient would not usually speak unless directly spoken to. Again today patient states "My medicine isnt right. Im worse than jannette ever been." Patient redirectedwhich last for a time. While in group patient appeared very depressed and sad with a 'Long" face. Patient did maintain safe behaviors and voiced no suicidal ideations while in group
--- NOTE | 2017-01-17 13:19 | NUR ---
PATIENT ACCEPTED EXELON PATCH AFTER MEDICATION EDUCATION AND MUCH ENCOURAGEMENT.
--- NOTE | 2017-01-17 14:09 | NUR ---
POA CALLED IN AT THIS TIME. FULL UPDATE GIVEN AND ALL QUESTIONS ANWSERED.
--- NOTE | 2017-01-17 14:22 | NUR ---
PT IS ALERT AND ORIENTED WITH SOME ST MEMORY DEFICITS NOTED AT TIMES. MOOD REMAINS MILDLY DEPRESSED WITH BLUNTED AFFECT. ANXIOUS OVERTONES NOTED AT TIMES DURING INTERACTIONS. DENIES ANY SI/HI, PLAN, OR INTENT. MEDICATION COMPLIANT WITH AM MEDICATIONS WITHOUT DIFFICULTY. REMAINS NEGATIVE IN HER THINKING, EMOTIONAL SUPPORT WITH REDIRECTION TO POSITIVE THINKING PROVIDED DURING THESE TIMES. HAS BEEN ATTENDING GROUP THERAPY WITH MINIMAL PARTICIPATION. MEDICATION EDUCATION COMPLETED WITH MINIMAL EFFECT ABOUT NEW MEDICATION ORDERS. DENIES ANY SENSORY DISTURBANCES AND NONE ARE NOTED. POSITIVE PEER INTERACTIONS NOTED. SEE [facility] FLOWSHEET FOR SPECIFIC MONITORING.
--- NOTE | 2017-01-17 15:32 | NUR ---
TANNER Patient was in attendence as well as participated. Patient was somewhat withdrawn speaking only when spoken to. Patient maintained safe behaviors and voiced no suicidal ideations while in group
[2017-01-17 20:38] VITALS: BP 138/63
--- NOTE | 2017-01-18 04:35 | NUR ---
24 HR chart check completed.
--- NOTE | 2017-01-18 05:42 | NUR ---
PT CONITNUES NEGATIVE BEHAVIOR "I'M GOING TO , WHY DONT I HAVE ANYTHING FOR SLEEP LIKE MY ROOM MATE, WHY CANT YOU TIE DOWN LISA?, I THINK MY EXELON IS THE CAUSE OF IT ALL, THIS PATCH IS KEEPING ME AWAKE". MED EDUCATION PROVIDED. Q15 CHECKS MAINTAINED, YELLOW SOCKS AND SINAGE TO PREVENT FALLS. CONTINUE TO DISMISS NEGATIVE STATEMENTS AND INTERJECT WITH POSITIVE OUTLOOKS. SLEPT 8 HOURS WITH OUT INTURRUPTION.
[2017-01-18 08:26] VITALS: BP 142/98
--- NOTE | 2017-01-18 11:27 | NUR ---
Goals, remenissing and would you rather Patient declined to attend group due to not feeling well. Stated " I will come after nursing gives me medicine." Patient encouraged to particpate while waiting for nursing however continued to delcine. Patient did not show up for group after medicine was given.
--- NOTE | 2017-01-18 16:19 | NUR ---
Mood is depressed. On 1:1 interaction Nadeen is verbal discussing her current feelings. She states that she does not feel "any better" and states that she did not sleep well on night previous. States that she continues to feel depressed and doesn't feel that the currently prescribed medications are "right." She states that she is unsure "if things will get better." Support provided. Voicing some c/o constipation and was medicated with MOM 30 cc's po @ 8521. Also give prune juice with her lunch her request. Expressed concern that she may have "another urinary infection." Dr. Smith in to see her and was informed of this complaint, however, she was unable to state any specific symptoms to him. Energy level is low. Appetite is good for breakfast and fair for lunch. Refer to [facility] flowsheet for specific monitoring.
--- NOTE | 2017-01-18 18:04 | NUR ---
Nadeen reports relief of constipation with MOM and prune juice.
[2017-01-18 20:00] VITALS: BP 133/63
--- NOTE | 2017-01-19 05:37 | NUR ---
24 HR chart check completed.
--- NOTE | 2017-01-19 06:53 | NUR ---
PT CONITNUES NEGATIVE OUTLOOK AND DEMEANOR. INITALLY REFUSING HS MEDICATIONS STATING "I'M NOT TAKING ANYTHING UNTILL I CAN GET SOMETHING TO SLEEP" SECOND REAPROACH AND MED EDUCATION PROVIDED AND AGREED TO DISCUSS REQUESTS WITH MD IN THE MORNING. PT SLEPT INTERMITTENTLY TOTAL OF 6 HOURS. 1-1 PROVIDED CONTINUE POC AND POSITIVE REINFORCEMENT
[2017-01-19 07:40] VITALS: BP 123/68
--- NOTE | 2017-01-19 09:08 | NUR ---
RISHI IS REFUSING HER EXELON PATCH THIS MORNING
--- NOTE | 2017-01-19 14:26 | NUR ---
Mood is depressed and Nadeen expresses some c/o anxiousness. She is reporting that she is not sleeping well @ night and feels that her medications that are prescribed are not helping her. Education was provided regarding the importance of allowing enough time to see if medications will be effective. She is minimally receptive and responds with, "I never should have come here." Voicing a belief that she did not receive the correct medications last night. She states, "I don't like those pills." Refused Exelon patch this morning in spite of education provided by staff. States a belief that she is "not getting better." She was encouraged to discuss this with the psychiatrist when he visits. Voices feelings of frustration with current hospitalization and has been noted to be isolative to her room, coming to the dining room only for meals. Voicing some hopeless feelings but when questioned states that she will not harm herself. She is however, expressing some fearful feelings that she may become "as sick as I used to be a long time ago." Support provided. She is compliant with prescribed medications. Energy level is moderate and she is noted to walk back and forth in hallway @ intervals throughout the day. Expressing some c/o feeling "tired." Refer to [facility] flowsheet for specific monitoring.
[2017-01-19 20:13] VITALS: BP 131/64
--- NOTE | 2017-01-19 22:06 | NUR ---
PT REFUSING ALL MEDICATIONS WITH THE EXCEPTION OF VISINE AND ZOCOR. PT STATING THAT SHE IS BEING DOUBLE DOSED AND THAT SHE ONLY WANTS MEDICATION FOR SLEEP AND ANXIETY. PT REPORTING THAT SHE HAD 2 GREEN PILLS LAST NIGHT AND THAT THERE ARE NO GREEN PILLS TONIGHT. PT EDUCATED THAT SHE HAD AN INCREASE IN HER ELAVIL WHICH IS AN ANTI DEPRESSANT AND THAT SHE RECIEVES A HALF TAB OF TRILIFON TO MAKE [address] STATING I NEED SOMETHING FOR ANXIETY AND SLEEP, I'M NOT TALKING ANY OF THIS MEDICATION. PT INFORMED OF RIGHTS TO REFUSE MEDICATION. PT STATED "BUT ARPAN SAID I DIDNT HAVE TO TAKE THESE AND THAT I WOULD HAVE PILLS FOR ANXIETY AND SLEEP". PT INSTURUCTED TO TALK TO SANDY IN THE MORNING REGARDING REQUESTS FOR MEDICATION CHANGES.
--- NOTE | 2017-01-19 22:30 | NUR ---
PT CAME TO NURSES STATION STATING "YOU DIDNT GIVE ME MY MEDICATION!" EDUCATION REINFORCED REGARDING MEDICATION. PT INSPECTING PACKAGES OF MEDICATIONS, ALL MEDICATIONS ADMINISTERED FOR OVER 24 HOURS REVIEWED WITH PT. EDUCATED THAT AOME MEDICATIONS TAKE TIME TO REACH A THERAPEUTIC LEVEL AND THE SANDY HAD JUST INCREASED HER MEDICATION FOR THIS EVEING IN HOPES TO FACILITATE SLEEP. PT AGREEING TO TAKE MEDICATIONS PERSCRIBED AT THIS TIME AND VERBALIZES UNDERSTANDING OF MEDICATION.
--- NOTE | 2017-01-20 07:27 | NUR ---
PT CONTINUES TO TO STAFF SPLIT, REFUSE MEDICATIONS. NEGATIVE DEMEANOR. HOPELESS HELPLESS. REFUSING MEDICATIONS AT TIMES. SLEPT 6 HOURS.
[2017-01-20 08:14] VITALS: BP 139/71
--- NOTE | 2017-01-20 08:15 | NUR ---
TREATMETN TEAM WAS HELD WITH THE FOLLOWING: DR. DODGE, RNs, AT, SWs. PT STILL FEELS SOMEONE IS TRYING TO POISON HER PER DR. DODGE. WANTS TO LOOK INTO A 30DAY REHAB STAY IF PT AGREES. SWS WILL COMPLETE PASRR TO SEE IF PT WILL BE APPROVED FOR SHORT TERM STAY. 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 DR. DODGE WANTS COMPOTENCY EVAL.
--- NOTE | 2017-01-20 08:42 | NUR ---
'S OFFICE NOTIFIED OF CONSULT NEEDED FOR COMPETANCY AND DIAGNOSIS.
--- NOTE | 2017-01-20 10:48 | NUR ---
ON UNIT TO ASSESS PT.
--- NOTE | 2017-01-20 11:35 | NUR ---
Goals/Exercise/I am greatful for... Patient did attend group as well as participated. Patient withdrawn and selfdefeating. Patient sees no good in herself and states she has no friends to be greatful for. Patient tearful and attempted to leave group. AC disussed the need to face things that sress her and situations she finds difficult to deal with. Patient returned to her chair for the rest of group
--- NOTE | 2017-01-20 12:41 | NUR ---
Spoke with pt. Pablo and son, Je per pt. permission. pt's very hard of hearing and was having a hard time understanding the discussion about pt. possibly going for a 30 day rehab before going home. pt gave her pt. son Je, phone number. Gretchen did understand that Dr. coyne asking that pt. go for a 30 day rehab before returning home and that Dr. Coyne was suspecting early Alzheimer's with the pt. pt son states that the family was also thinking that might be the case too. pt. son did state that pt. likes the [place] facility and that it would be ok to send referrals to other [place] ref[place] in [place]. pt. also states that she likes the [place] one and that she understands that we need to send several referrals out to various one's to see what bed may be avaialable. Referrals to be sent out to [facility], neither libertarian could remember the name of it and to several ones in the [place].
--- NOTE | 2017-01-20 14:47 | NUR ---
pt. JONA called in to get clarity for pt. d/c plans. SW let her know, with pt. permission, that she may qualify for a rehab stay and the Pasrr was faxed today, awaiting approval for such a stay, if not pt. will return home with home health.
--- NOTE | 2017-01-20 15:32 | NUR ---
Pasrr completed and faxed.
--- NOTE | 2017-01-20 15:34 | NUR ---
Jeopardy coping skills, anger management and therapy/feelings group Patient attended group and answered question appropriately. Patient able to state answers however when discussing personal feelings about self patient becomes self deafting and unable to state positive things about self. Patient reports wanting to having someone to talk to on a more regular basis while here. Encouraged patient to ask SW and AC for 1:1 groups. Patient reports having hallucinations last night from medication however not informing the nurse. Patient unable to state triggers to SI or self destructive thoughts.
--- NOTE | 2017-01-20 16:55 | NUR ---
PT ALERT TO PERSON AND PLACE. PT MED COMPLIANT WITH MINIMAL DIFFICULTY, PT STATING "I'M NOT TAKING A WHOLE ONE OF THOSE PSYCHIATRIC PILLS, I'LL ONLY TAKE HALF." MED EDUCATION PROVIDED AND ADVISED PT THAT SHE IS ONLY ORDERED HALF A PILL AT THIS TIME. PT ANXIOUS AT TIMES. PT HAS VARIOUS SOMATIC COMPLAINTS, COMPLAINTS REVIEWED WITH MEDICAL DR, NO FURTHER ORDERS AT THIS TIME. NO HALLUCINATIONS OR DELUSIONS NOTED. PT DENIES ANY HOMICIDAL/SUICIDAL THOUGHTS. PT CALM, INTERACTING WITH STAFF AND PEERS. PT ISOLATIVE TO ROOM AT TIMES. PT AMBULATORY THROUGHOUT UNIT, GAIT STEADY. PT CONTINENT OF BOWEL AND BLADDER. PT TREATMENT PLAN TARGETS SUICIDAL IDEATIONS. PLAN IS TO ENCOURAGE PT TO VOICE ANY SUICIDAL THOUGHTS, CONTRACT FOR SAFETY IF SUCH THOUGHTS ARISE, PROVIDE 1:1 WITH STAFF AND POSITIVE REASSURANCE WHEN NEEDED.
[2017-01-20 19:52] VITALS: BP 104/52
--- NOTE | 2017-01-20 21:49 | NUR ---
24 HR chart check completed.
--- NOTE | 2017-01-21 03:48 | NUR ---
PT ISOLATIVE TO ROOM, MOOD CONTINUES TO BE NEGATIVE. MEDICATION COMPLIANT WITH OUT COAXING. MED EDUCATION ATTEMPTED WITH PT, REFUSING TO PARTICIPATE BEING DISMISSIVE TO NURSING STAFF "IT DOESNT MATTER JUST GIVE THEM TO ME AND GET OUT OF HERE". PT GIVEN SPACE AND REMINDED THAT SHE CAN COME TO NURSING STAFF WITH ANY QUESTIONS REGARDING MEDICATIONS OR CONCERNS. Q 15 MIN CHECKS MAINTAINED FOR PT SAFETY. CONTINUE TO EDUCATE, LIMIT SET AND PROVIDE POSITIVE SUPPORT, CONTINUE TO ASSESS FOR MEDICATION SIDE EFFECTS.
--- NOTE | 2017-01-21 04:39 | NUR ---
FAX FROM HENRY AT [facility] ISSUES ALL DAY YESTERDAY. 2 ATTEMPTS TO OBTAIN CLINICALS. THEIR POLICY INDDICATES AFTER 2 ATTEMPTS, CASE HAS TO BE SENT FOR PEER TO PEER. I FAXED CLINICALS YESTERDAY AT 1215 AND REC'D CONFIRMATION OF MY FAX. CLINICALS REFAXED THIS AM AND DR DODGE'S CELL PHONE NUMBER PROVIDED.
--- NOTE | 2017-01-21 06:52 | NUR ---
PT SLEPT 8 HOURS COMPLIANT WITH HS MEDICATIONS
[2017-01-21 07:56] VITALS: BP 151/78
--- NOTE | 2017-01-21 10:52 | NUR ---
VM FROM YASMIN Chatman CM INFORMING THAT [employer] HAD A PROBLEM WITH THEIR SYSTEM YESTERDAY AND REVIEW WAS NOT RECEIVED. YASMIN HAS CONFIRMATION THAT IT WAS SENT. INS[employer]ANCE SAID TO DAY THAT NEEDED A PEER TO PEER WITH DR. DODGE. YASMIN REFAXED INFORMATION TO [employer].
--- NOTE | 2017-01-21 10:53 | NUR ---
Shivani Jarvis CNP of hospitalist group here to see pt at this time. Made aware of pt's complaints of urinary retention. Plan to bladder scan for post void residual and labs.
--- NOTE | 2017-01-21 10:56 | NUR ---
1:1 Patient declined to attend group however this AC compleated 1:1 after group. Patient reports " feeling , living outside my body. Im numb all over." Discussed using the tools provided while here to improve feelings of self and that if they choose not to use them we cant force them to. Patient states " I know. I just dont think Im strong enough." Discussed importance of positive thoughts and being proactive in recovery and living everyday. Patient states " I just dont know if I can." Prior to AC leaving again encourage patient to be proactive in their treatment. Patient yelled for AC/Nursing after AC left room and agreed to take medication. Nursing to assist patient.
--- NOTE | 2017-01-21 11:30 | NUR ---
PT IS ALERT AND ORIENTED TO PERSON, PLACE, TIME, SITUATION. SOME ST MEMORY GAPS NOTED THIS AM. RESPIRATIONS EASY ON ROOM AIR. MOOD REMAINS DEPRESSED, HOPELESS/HELPLESS AND NEGATIVE. AFFECT IS FLAT. SPEECH IS WNL AND COHERENT, ABLE TO MAKE NEEDS KNOWN WITHOUT DIFFICULTY. PT DENIES SI/HI. PT DENIES HALLUCINATIONS, NO RESPONSE TO INTERNAL STIMULI NOTED. PT CONTINUES WITH MULTIPLE COMPLAINTS REGARDING HER STAY HERE AND THE MEDICATIONS. PT STATES "I JUST WANTED TO COME HERE FOR A SIMPLE MEDICATION CHANGE AND INSTEAD OF GETTING BETTER, I JUST KEEP GETTING WORSE." PT INITIALLY REFUSED TRILAFON, PT THEN CAME TO THIS NURSE AND REQUESTED TO TAKE TRILAFON ORDERED BY DR. DODGE. THIS NURSE AND 2ND BUNCH SPOKE WITH PT AT LENGTH REGARDING MEDICATIONS AND POSSIBLE REFERALL TO ANOTHER FACILITY FOR ECT TREATMENTS AT THE RECOMMENDATION OF DR. DODGE D/T PT'S HX OF PREVIOUS ECT TREATMENT AND MEDICATION SENSITIVITY. PT AGREEABLE, STATES "I JUST WANT TO FEEL BETTER." PT IS AMBULATORY WITH STEADY GAIT, INDEPENDENT WITH ADLS, CONTINENT OF BOWEL AND BLADDER. NO DISTRESS NOTED. Q15 MIN SAFETY CHECKS MAINTAINED PER ORDERS. REFER TO [facility] FLOWSHEETS FOR SPECIFIC MONITORING.
--- NOTE | 2017-01-21 11:39 | NUR ---
PVR 180, Shivani Jarvis CNP made aware. NNO.
--- NOTE | 2017-01-21 14:11 | NUR ---
Operations Systems Specialist Note: Faxed referral packets to [facility] and [facility] today.
--- NOTE | 2017-01-21 15:17 | NUR ---
Social HART Patient did attend group as well as participated. Patient withdrawn at times. Patient maintained safe behaviors as well as expressed no suicidal ideations while in group
--- NOTE | 2017-01-21 16:34 | NUR ---
PT WITHDRAWN TO ROOM, THIS NURSE ATTEMPTED TO ENGAGE PT IN CONVERSATION, PT REMAINS PREOCCUPIED WITH MEDICATIONS AND SIDE EFFECTS. CONTINUES TO MAKE NEGATIVE COMMENTS REGARDING HERSELF AND HER CARE. THIS NURSE AND PT FURTHER DISCUSSED MEDICATIONS, PT STATES "I'M NOT TAKING THAT PSYCHOTIC MEDICINE ANYMORE. IT'S GIVING ME PANIC ATTACKS." THIS NURSE REMINDED PT TO COME TO STAFF WHEN STATED PANIC ATTACKS OCCUR SO STAFF CAN ASSIST PT. PT VERBALIZED UNDERSTANDING. PT REQUESTING PREVIOUSLY PRESCRIBED AMBIEN, MADE AWARE IT IS NOT ORDERED CURRENTLY AND NOT RECOMMENDED FOR [facility] USE, PT STATES "WELL I'D RATHER BE ADDICTED THAN FEEL LIKE THIS." HOWEVER; PT ALSO REPORTS SHE IS SLEEPING 'LIKE THE ' AT NIGHT. PT THEN STATES "HE WANTS ME TO GO HOME?! I CAN'T GO HOME LIKE THIS! IT WOULD KILL MY TO SEE MY LIKE THIS" PT REMINDED OF CONVERSATIONS EARLIER WITH BOTH DR. DODGE AND THIS NURSE AND SECOND RN REGARDING THE POSSIBILITY OF A TRANSFER TO ANOTHER FACILITY FOR POSSIBLE ECT TREATMENTS, PT STATES "SO THERE'S NO HOPE." PT THEN WALKED AWAY AND DISMISSED FURTHER ATTEMPTS BY THIS NURSE TO EDUCATE OR PROVIDE EMOTIONAL SUPPORT.
--- NOTE | 2017-01-21 18:25 | NUR ---
DAUGHTER CALLED IN AND FULL UPDATE GIVEN AT THIS TIME.
--- NOTE | 2017-01-21 18:32 | NUR ---
TREATMENT TEAM WAS HELD THIS MORNING WITH THE FOLLOWING: DR. DODGE, MEDICAL STUDENT, RNs, ATs, SW. PT COMPLIANED OF URINARY RETENTION. DR. DODGE WANTS A REFERRAL MADE FOR ECT TX AT [facility] OR [place].
[2017-01-21 19:45] VITALS: BP 120/62
--- NOTE | 2017-01-21 22:20 | NUR ---
PATIENT ANXIOUS AND WITH COMPLAINT OF NOT BEING ABLE TO SLEEP AND WANTS THE DOCTOR TO ORDER HER A SLEEPING PILL. PATIENT ISOLATIVE AND WITHDRAWN TO ROOM THROUGHOUT SHIFT. PATIENT AMBULATORY WITH STEADY GAIT. PATIENT STATED TO THIS NURSE THAT SHE THINKS THAT THE DOCTOR IS CRUEL FOR NOT LETTING HER HAVE AMBIEN. PATIENT PREOCCUPIED WITH AMBIEN FOR SLEEP. PATIENT RESTING IN BED AT THIS TIME. PATIENT WITH NO HALLUCINATIONS OR DELUSIONS. PATIENT WTIH NO SUICIDAL OR HOMICIDAL IDEATIONS.
--- NOTE | 2017-01-22 05:34 | NUR ---
24 HR chart check completed.
--- NOTE | 2017-01-22 05:56 | NUR ---
Q 15 MINUTE CHECKS MAINTAINED. SLEPT > 6 HOURS THROUGHOUT SHIFT. VOICES NO DISCOMFORT AT THIS TIME
[2017-01-22 07:39] VITALS: BP 137/72
[2017-01-22 07:48] LABS: BASO % 0.4 % (0.0-1.0); EOS # 0.2 10*3/uL (0.0-0.4); EOS % 2.2 % (1.0-4.0); HEMATOCRIT 35.8 % (37.0-47.0); LYMPH # 2.3 10*3/uL (1.3-4.4); LYMPH % 30.7 % (27.0-41.0); MEAN CELL VOLUME 93.7 fl (81.0-99.0); MEAN CORPUSCULAR HGB 31.4 pg (27.0-31.0); MEAN CORPUSCULAR HGB CONC 33.5 g/dl (33.0-37.0); MEAN PLATELET VOLUME 9.7 fl (9.6-12.3); MONO # 0.8 10*3/uL (0.1-1.0); MONO % 10.5 % (3.0-9.0); NEUT # 4.1 10*3/uL (2.3-7.9); NEUT % 55.8 % (47.0-73.0); PLATELET COUNT AUTOMATED 350 10*3/uL (130-400); RED BLOOD COUNT 3.82 10*6/uL (4.10-5.10); RED CELL DISTRI WIDTH 12.6 % (0-14.5); WHITE BLOOD COUNT 7.4 10*3/uL (4.8-10.8)
[2017-01-22 08:17] LABS: ALBUMIN 3.1 gm/dl (3.1-4.5); ALKALINE PHOSPHATASE 79 U/L (45-117); BUN 11 mg/dl (7-24); CHLORIDE 102 mmol/L (98-107); CREATININE 0.62 mg/dL (0.55-1.02); POTASSIUM 3.9 mmol/L (3.5-5.1); SGOT/AST 20 IU/L (3-35); SGPT/ALT 45 U/L (12-78); SODIUM 139 mmol/L (136-145); TOTAL PROTEIN 6.3 gm/dL (6.4-8.2)
--- NOTE | 2017-01-22 08:58 | NUR ---
Spoke with comm. Shu liaison in regards to pt. needs for NH stay. Dr. coyne would like pt. to go to NH for a short term stay before returning directly home to assure that pt. is stabilized on med's. GREGORY did receive the pasrr back and the State is requesting addt'l documentation for review. GREGORY faxed to state at this time.
--- NOTE | 2017-01-22 10:58 | NUR ---
Exercise and triva group Patient attended group and actively particpated. Patient continues to be withdrawn from others however engaged in triva game. Patient reports no SI or self destructive thoughts throughout group.
--- NOTE | 2017-01-22 12:19 | NUR ---
pt. pasrr review at State neded more documentation sent back to [employer]. info. faxed back to [employer] for review.
--- NOTE | 2017-01-22 13:38 | NUR ---
GREGORY met with pt, dil and son. Nadeen open to going to a short-term rehab stay if approved by [facility] thru the pasrr proces. not interested in a respite stay if she doesn't qualify. pt. son and dil live close and are willing to assist with pt. if she returns home. pt. open to Home health and IOP if she qualifies for the services. referral will be made to IOP.
--- NOTE | 2017-01-22 14:03 | NUR ---
Nadeen is compliant with prescribed medications, however, she continues to voice that she is doubtful that they are helping. Education was provided, however, she was minimally receptive and stated that she is "starting to feel like nothing will help." Support provided. She voices a fear that she will become "as sick as I used to be." Encouraged her to allow enough time for the medications to work. Dr. Talley in to see her today with orders received. We discussed the newly prescribed prn Rozerem and she responded with, "yeah but I still have to ask for it." Mood is depressed and @ times she is isolative. She does, however, attend group activities as scheduled with encouragement. Energy level is low to moderate on this day. Appetite is good for meals. Refer to [facility] flowsheet for specific monitoring.
--- NOTE | 2017-01-22 15:11 | NUR ---
Positive Traites:I am a Star... Patient did attend group as well as participated with a positive attitude about herself. This staff member was happy to hear this patient state some positive traits about herself without being prompted to do so. During group patient maintained safe behaviors and voiced no suicidal ideations
[2017-01-22 19:42] VITALS: BP 109/52
--- NOTE | 2017-01-23 00:15 | NUR ---
24 HR chart check completed.
--- NOTE | 2017-01-23 06:17 | NUR ---
PER ANDERSON AT [facility] -DR DODGE DID NOT ANSWER PHONE FOR PEER TO PEER THEREFORE, LAST COVERED DAY IS 01-20-17 AND DENIED 01/21/17 FORWARD.
--- NOTE | 2017-01-23 06:37 | NUR ---
GREGORY spoke with Buffy at [facility] in regards to pt. being referred for IOP. Referral info. forwarded.
--- NOTE | 2017-01-23 07:01 | NUR ---
PT HAS BEEN OBSERVED ON Q 15 MIN CHECKS & HAS SLEPT QUIETLY THROUGHOUT THE SHIFT PAST 2129.
--- NOTE | 2017-01-23 07:12 | NUR ---
No HH avaialable, [facility] does not cover SN according to [facility]. pt. will be referred for psychiatric and medical appts. and [facility] IOP.
[2017-01-23 08:00] VITALS: BP 136/65
--- NOTE | 2017-01-23 09:16 | NUR ---
SAM HENNESSY MANAGER TECHNICAL SUPPORT ON UNIT TO SEE PATIENT.
--- NOTE | 2017-01-23 11:39 | NUR ---
Goals,Exercise and Trivia Patient did not attend group this morning. Patient was encouraged several times but patient continued to refuse. Patient made statements of " I was good when I came here,now Im not."And " From sane to insane." Ac tried to talk to patient who just continued to lie prone in her bed staring at the ceiling.
--- NOTE | 2017-01-23 11:40 | NUR ---
PATIENT IS ALERT AND ORIENTED TO PERSON, PLACE, TIME AND SITUATION. ABLE TO VOICE NEEDS. DEIES ANY HALLUCINATIONS, DELUSIONS, HI/SI OR PAIN. MOOD IS DEPRESSED. CONTINUE TO BE OBSESSED WITH MEICATIONS AND THEIR SIDE EFFECTS. INDEPENDANT WITH ACTIVITIES OF DAILY LIVING. CONTINENT OF BOWEL AND BLADDER. MEDICATION COMPLIANT WITH MUCH ENCOURAGEMENT TO BE MED COMPLIANT. Q 15 MINUTE SAFETY CHECKS MAINTAINED. CONTINUE TO MONITOR FOR VOICED SIUCIDAL IDEATIONS AND PROVIDED 1:1 TO EXPRESS FEELING AND UPDATE DOCTOR OF SI WHEN VOICED.
--- NOTE | 2017-01-23 12:40 | NUR ---
GREGORY spoke with pt. about d/c tomorrow. pt states "As long as I get an opthamalogist appt set up too". GREGORY left at [facility] where pt. receives psychiatric servcies and Dr. Membreno office (closed on ) to set up follow up appts.
--- NOTE | 2017-01-23 12:42 | NUR ---
pt rome ginger will be here to nut picker pt. tomorrow at noon.
[2017-01-23 20:16] VITALS: BP 124/56
--- NOTE | 2017-01-24 01:08 | NUR ---
PT ALERT AND ORIENTED X4. PT REPORTING SOMATIC COMPLAINTS OF TRANSIENT EYE PRESSURE AND CONSTIPATION. EARLIER IN THE SHIFT, THE PATIENT HAD COMPLAINED OF LOOSE STOOL THAT SHE ATTRIBUTED TO THE MEDICATION. PT UNABLE TO VOICE THE UNDERLYING EMOTIONAL NEED THAT IS UNSAFTISIFIED, THUS, MANIFESTING ITSELF SOMATIC SYMPTOMS. PT DENIES SI/HI, HALLUCINATIONS, OR DELUSIONAL THOUGHT PROCESSES. CONTINUE TO MONITOR FOR CHANGES IN BEHAVIOR. REFER TO FLOWSHEET FOR ADDITIONAL INFO
--- NOTE | 2017-01-24 03:06 | NUR ---
24HR CHART CHECKS COMPLETE
--- NOTE | 2017-01-24 06:13 | NUR ---
PT SLEPT >8HRS, UNINTERRUPTED
[2017-01-24 08:00] VITALS: BP 154/66
[2017-01-24] MEDS ORDERED: PERPHENAZINE4 M1 PO ×2 (08:28)
[2017-01-24] MEDS ORDERED: AMITRIPTYLINE25 MG PO (08:28)
[2017-01-24] MEDS ORDERED: ROZEREM8 MG PO (08:28)
[2017-01-24] MEDS ORDERED: RIVASTIGMINE1 EACH T (08:28)
--- NOTE | 2017-01-24 08:51 | NUR ---
01/23/17 afternoon: coping with various feelings/Emoji face suncatchers Patient did not attend group. Patient refused stating she was unable to see to participate in group. At the end of group patient walked in to activity room to get something to drink. patient showed no signs of being unable to see
--- NOTE | 2017-01-24 08:57 | NUR ---
GREGORY left for [facility]Buffy Hough to call with approval for program and when her first day will be to start the program. pt spon and dil willing to transport as needed to the IOP program. GREGORY asked for a return before 11am to be able to put in d/c paperwork and let pt. and family know.
--- NOTE | 2017-01-24 11:26 | NUR ---
Goals/Exercise/Reminiscing Patient did attend group as well as participated. Patient was withdrawn and needed prompted a few times to join in. Patient maintained safe behaviors and reported no suicidal ideations while in group
--- NOTE | 2017-01-24 11:38 | NUR ---
pt to follow up with [facility] IOP program and Dr. Membreno due to SW not receiving phone call back before d/c.
== END 2017-01-24 13:00 | disposition home or self-care (01) | DRG 885 ==
LOC: 3N 23:09
PROVIDERS: Psychiatry & Neurology Psychiatry; Registered Nurse; ADMIT Psychiatry & Neurology Psychiatry
DX: F33.3 Major depressive disorder, recurrent, severe with psychotic symptoms (principal); R45.851 Suicidal ideations; B95.61 Methicillin susceptible Staphylococcus aureus infection as the cause of diseases classified elsewhere; N39.0 Urinary tract infection, site not specified; E78.5 Hyperlipidemia, unspecified; I10 Essential (primary) hypertension; H35.30 Unspecified macular degeneration; F41.1 Generalized anxiety disorder; H40.9 Unspecified glaucoma